=== PATIENT | female | born 1995 | race Caucasian/White ===

== ENCOUNTER 2018-08-17 13:25 | Emergency (ER) | payer SELFPAY ==
[2018-08-17 13:26] VITALS: BP 171/108; PULSE 94; RESP 16; TEMP 36.7; O2SAT 100; BMI 38.2
[2018-08-17] MEDS: 0.9% Normal Saline 1,000 ML 1000 ML IV (13:57)
[2018-08-17] MEDS: DiphenhydrAMINE 50 MG/ML Syringe 25 MG IV (13:57)
[2018-08-17] MEDS: Ketorolac 30 MG/ML Syringe IV (13:58)
[2018-08-17] MEDS: Metoclopramide 10 MG/2 ML Vial IV (13:59)
--- NOTE | 2018-08-17 14:03 | ED.VISSUMM ---
- ER Visit Summary Date of Service: 08/17/18 Chief Complaint: [Headache] History of Present Illness: The patient is a 23 F [presents with headache that started this morning. Patient states that she got up to use the restroom and noted that she had a headache that gradually worsened. Patient had nausea and vomited x4 with it. She complains of photophobia. Similar to headache she is had in the past. She denies any falls or head injuries. She denies recent illness. Patient did feel somewhat dizzy with it. Last menstrual period was 08/05/2018. Patient rates the headache a 10 out of 10 and describes it as a band around her head. Physical Examination: [HEENT-PERRLA, EOMI. Cranial nerves II through XII grossly intact. TMs clear. Mucous membranes moist. No adenopathy. Cardiovascular-regular rate and rhythm without murmur or ectopy Lungs-clear to auscultation, chest wall stable without crepitus or subcu emphysema Abdomen-normoactive bowel sounds, soft, nontender, no rebound or rigidity, no peritoneal signs. Neuro zzyx-kxuzaf-gehl and heel bo testing within normal limits, negative Romberg, negative pronator drift, fundi benign Extremities-intact ?4, normal range of motion, normal pulses, atraumatic] Test Results: [None indicated] Emergency Department Course and Treatment: [Patient had an IV line established and was given a liter normal same fluid bolus as well as Reglan, Benadryl, and Toradol. Patient's headache mostly resolved and she is feeling much improved. Patient states that she has no further dizziness.] Treatment Plan: [Patient will be given referral primary care physician process control tech for no doc. Patient advised to return if worsening headache, difficulty with balance, fever, persistent vomiting, or condition should worsen anyway.] Disposition: [Discharged home in stable condition] Impression: [Cephalgia-suspect migraine] This note was generated with [employer] dictation software. It may contain incorrect words, spelling, and punctuation that were not noted in review of the chart prior to signing ED Disposition - Plan for ED Patient: Referrals: Jerrod Livingston DO [COURTESY STAFF PHYSICIAN] -
--- NOTE | 2018-08-17 14:53 | ED.DEP ---
ED Disposition - Plan for ED Patient: Instructions: ED Cephalgia Unspecified, ED Headache Migraine Referrals: Jerrod Livingston DO [COURTESY STAFF PHYSICIAN] - Niall Guzman DO [STAFF PHYSICIAN] - 3-5 Days
[2018-08-17 14:59] VITALS: BP 145/79; PULSE 70; RESP 18; O2SAT 99
== END 2018-08-17 15:00 | disposition home or self-care (01) ==
PROVIDERS: Emergency Provider Emergency Medicine
DX: R51 Headache (principal); R11.2 Nausea with vomiting, unspecified
CPT/HCPCS: 96361; 96374; 96375; 99283; J7030; A4216

== ENCOUNTER → 2020-04-06 08:11 | Outpatient (CLI) | payer SELFPAY ==
[2020-03-30 08:52] VITALS: BMI 37.5
[2020-04-06 09:27] LABS: Prolactin 11.9 ng/mL; Thyroid Stim Hormone (TSH) 1.86 uIU/mL (0.358-3.74)
== END ==
LOC: PAVLAB 08:14
PROVIDERS: Referring Provider Obstetrics & Gynecology; Visit Provider Obstetrics & Gynecology
DX: N97.9 Female infertility, unspecified (principal)
CPT/HCPCS: 36415; 82627; 84146; 84403; 84443; 82626

== ENCOUNTER → 2020-04-22 14:20 | Outpatient (CLI) | payer BC, SELFPAY ==
[2020-03-30 08:52] VITALS: BMI 37.5
--- NOTE | 2020-04-22 14:28 | US_ITS ---
STUDY: ULTRASOUND OF THE FEMALE PELVIS - COMPLETE REASON FOR EXAM: Female, 24 years old. MENORRHAGIA LMP: 04/04/2020 TECHNIQUE: Transabdominal real-time exam grayscale image documentation. Transvaginal ultrasound was required for adequate visualization of the uterus and adnexal areas. TECHNICAL QUALITY: Adequate. COMPARISON: None. FINDINGS: The uterus is retroverted and is in a midline position. The uterus measures 6.9 x 4.2 x 6.7 cm. Normal uterine cervix. The endometrium measures 14.7 mm in thickness, and is striated. There is no demonstrated endometrial mass. There is no demonstrated myometrial mass. I.U.D. - The patient does not have an I.U.D. The right ovary is visualized. The right ovary measures 1.4 x 1.8 x 2.7 cm. There is no right ovarian cyst or ovarian mass. Question of prominent size of right fallopian tube. There is normal arterial and normal venous vascularity. The left ovary is visualized. The left ovary measures 1.7 x 2.1 x 3.3 cm. 8mm exophytic or paraovarian cyst. There is no visualized left adnexal mass or complex lesion. There is normal arterial and normal venous vascularity. Moderate free fluid. The pre void volume of the bladder was 362 ml. Polycystic ovary disease: No. US/Transvaginal Non- IMPRESSION: Normal uterus. Normal size of the right ovary with normal DOPPLER flow. Question mild prominence of the right fallopian tube. Normal size of the left ovary. 8 mm exophytic or paraovarian cyst. Moderate free fluid. Electronically Signed: Idalmis Jaquez MD at 16:14 EST , Service support ,
--- NOTE | 2020-04-22 14:28 | US_ITS ---
STUDY: ULTRASOUND OF THE FEMALE PELVIS - COMPLETE REASON FOR EXAM: Female, 24 years old. MENORRHAGIA LMP: 04/04/2020 TECHNIQUE: Transabdominal real-time exam grayscale image documentation. Transvaginal ultrasound was required for adequate visualization of the uterus and adnexal areas. TECHNICAL QUALITY: Adequate. COMPARISON: None. FINDINGS: The uterus is retroverted and is in a midline position. The uterus measures 6.9 x 4.2 x 6.7 cm. Normal uterine cervix. The endometrium measures 14.7 mm in thickness, and is striated. There is no demonstrated endometrial mass. There is no demonstrated myometrial mass. I.U.D. - The patient does not have an I.U.D. The right ovary is visualized. The right ovary measures 1.4 x 1.8 x 2.7 cm. There is no right ovarian cyst or ovarian mass. Question of prominent size of right fallopian tube. There is normal arterial and normal venous vascularity. The left ovary is visualized. The left ovary measures 1.7 x 2.1 x 3.3 cm. 8mm exophytic or paraovarian cyst. There is no visualized left adnexal mass or complex lesion. There is normal arterial and normal venous vascularity. Moderate free fluid. The pre void volume of the bladder was 362 ml. Polycystic ovary disease: No. US/Pelvic (Non ) IMPRESSION: Normal uterus. Normal size of the right ovary with normal DOPPLER flow. Question mild prominence of the right fallopian tube. Normal size of the left ovary. 8 mm exophytic or paraovarian cyst. Moderate free fluid. Electronically Signed: Idalmis Jaquez MD at 16:14 EST , Service support ,
== END ==
PROVIDERS: Referring Provider Obstetrics & Gynecology; Visit Provider Obstetrics & Gynecology
DX: N92.0 Excessive and frequent menstruation with regular cycle (principal)
CPT/HCPCS: 76830; 76856

== ENCOUNTER → 2020-06-18 | Outpatient (CLI) | payer BC, SELFPAY ==
[2020-03-30 08:52] VITALS: BMI 37.5
== END | disposition home or self-care (01) ==
LOC: LABSPEC 15:17
PROVIDERS: Referring Provider Otolaryngology Otolaryngology/Facial Plastic Surgery; Visit Provider Otolaryngology Otolaryngology/Facial Plastic Surgery
DX: J02.9 Acute pharyngitis, unspecified (principal)
CPT/HCPCS: 87070

== ENCOUNTER → 2020-11-25 09:19 | Outpatient (CLI) | payer BC, SELFPAY ==
[2020-11-11 09:36] VITALS: BMI 37.5
--- NOTE | 2020-11-25 09:23 | US_ITS ---
History: Viability Pelvic ultrasound: Findings: Endovaginal ultrasound imaging of the pelvis demonstrates a gestational sac like structure along the endometrium with average gestational sac diameter of 14 mm. No embryo or yolk sac is identified suggesting a nonviable . Ovaries are normal in size, echogenicity and perfusion. Right ovary measures 2.3 x 1.8 x 2.1 cm. Left ovary measures 3.9 x 1.7 x 1.4 cm. No adnexal mass or pelvic fluid collection. IMPRESSION: Intrauterine gestational sac like structure without embryo or yolk sac suggestive of nonviable first trimester . Recommend follow-up ultrasound in 7-10 days since gestational sac measurements did not meet criteria for determination of non-viability. at 1016 Reported and signed by: Madi Kemp MD Electronically Signed: Madi Kemp MD at 10:15 EDT Tel , Service support , US/Transvaginal w/Preg US
== END ==
PROVIDERS: Referring Provider Obstetrics & Gynecology; Visit Provider Obstetrics & Gynecology
DX: O20.0 Threatened abortion (principal); Z3A.00 Weeks of gestation of pregnancy not specified
CPT/HCPCS: 76817

== ENCOUNTER 2020-11-27 05:52 | Day surgery (SDC) | payer SELFPAY ==
[2020-11-25 10:02] VITALS: BMI 37.5
[2020-11-27] VITALS (11 sets, daily range): BP systolic 117–145; BP diastolic 65–97; PULSE 67–90; RESP 16–17; TEMP 36.1–36.6; O2SAT 92–100; BMI 36.5
[2020-11-27] MEDS: Lactated Ringers 1,000 ML 100 ML IV ×2 (06:57→11:09)
[2020-11-27] MEDS: Doxycycline 100 MG CAPSULE 200 MG PO (06:58)
[2020-11-27 07:02] LABS: Hematocrit 40.9 % (37-47); Hemoglobin 13.2 g/dL (12.0-15.0); Mean Corp Hgb Conc 32.3 g/dL (32-36); Mean Corpuscular Hgb 26.4 pg (27.0-32.0); Mean Corpuscular Volume 81.8 fL (81-99); Mean Platelet Vol. 10.7 fl (6.2-12.0); Platelet Count 253 K/mm3 (150-450); RBC Distribution Width CV 13.3 % (11.6-14.6); RBC Distribution Width SD 39.6 fl (35.1-43.9); White Blood Count 8.8 K/mm3 (4.4-11.0)
--- NOTE | 2020-11-27 07:26 | HP.PCM.OB_ITS ---
HPI - General HPI Narrative TANVI ARGUETA, is a 25 F who presents for suction D&C for missed PFSH PFSH Medical History (Updated 11/26/20 @ 13:19 by Larisa Vizcaino) Migraine headache Non-smoker Wears contact lenses Wears glasses Home Medications prenat.vits,allen,aou-qgqg-onsdb 1 tab PO DAILY 11/02/20 [History Last Taken Unknown] promethazine 12.5 mg tablet 12.5 mg PO Q6H PRN #60 tab 11/11/20 [Rx Last Taken Unknown] Allergy/AdvReac Type Severity Reaction Status Date / Time Penicillins [PCN] Allergy Swelling Verified 11/27/20 06:26 Sulfa (Sulfonamide Allergy Hives Verified 11/27/20 06:26 Antibiotics) Family History Mother Hypertension Grandmother Hypertension Aunt Ovarian cancer Surgical History s/p left arm surgery Social History adopted: No household members: spouse and other details: custody of niece born 08/30/20 current occupational status: employed 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[employer], 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 pets and animals: Yes pets and animals: dog(s) sexually active: Yes Smoking Status: Never smoker alcohol intake: current details: occasionally; none while substance use type: does not use caffeine: Yes what type of physical activity do you participate in: running frequency: 3-4 times per week seatbelt use: always do you feel safe at home: Yes additional social history: - [place] History 1 Elective abortions Hx Para Spontaneous abortions 1 Hx # Term Pregnancies Ectopic pregnancies Hx # Pregnancies Multiple births # of living children ROS Eyes Eyes: Reports systems reviewed and no addt'l complaints, except as documented ENT HEENT: Reports systems reviewed and no addt'l complaints, except as documented Cardiovascular Cardiovascular: Reports systems reviewed and no addt'l complaints, except as documented Respiratory/Chest Respiratory/Chest: Reports systems reviewed and no addt'l complaints, except as documented Gastrointestinal Gastrointestinal: Reports systems reviewed and no addt'l complaints, except as documented Genitourinary Genitourinary: Reports systems reviewed and no addt'l complaints, except as documented Musculoskeletal Musculoskeletal: Reports systems reviewed and no addt'l complaints, except as documented Integumentary Integumentary: Reports systems reviewed and no addt'l complaints, except as documented Neurologic Neurologic: Reports systems reviewed and no addt'l complaints, except as documented Psychiatric Psychiatric: Reports systems reviewed and no addt'l complaints, except as documented Endocrine Endocrinology: Reports systems reviewed and no addt'l complaints, except as documented Hematologic/Lymphatic Hematologic/Lymphatic: Reports systems reviewed and no addt'l complaints, except as documented Allergic/Immunologic Allergic/Immunologic: Reports systems reviewed and no addt'l complaints, except as documented Vital Signs Vital Signs Vital Signs: 11/27/20 06:29 Temperature 97.6 F L Temperature Source Temporal Pulse Rate 83 Respiratory Rate 16 Respiratory Pattern Normal Blood Pressure 126/88 H Blood Pressure Mean 100 Blood Pressure Source Monitor Blood Pressure Position Semi-Fowlers Blood Pressure Location Left Arm Pulse Ox 100 Oxygen Delivery Method Room Air Weight Weight: 226 lb 3.108 oz Body Mass Index (BMI) 36.5 Physical Exam Const alert, oriented x3, no apparent distress, average body habitus, healthy appearing and well nourished HEENT normocephalic and moist oral mucous membranes Head and Scalp: atraumatic Eyes PERRL and EOMs intact bilaterally Neck full ROM Resp normal respiratory effort, no retractions and no use of accessory muscles Cardio regular rate and regular rhythm GI soft to palpation, non-tender and non-distended Extremity normal to inspection and full ROM Skin no rashes or lesions noted Neuro no focal motor deficits and no sensory deficits noted Psych mental status grossly normal, affect normal, speech normal and activity/motor behavior normal Labs Labs Labs: Blood Type Pending Antibody Screen Pending Hct 40.9 % (37-47) Hgb 13.2 g/dL (12.0-15.0) Pap Smear Negative Obstetrics US Miscellaneous Test Assessment & Plan (1) Missed : COMMENT: Scheduled for D&C 11/27 PLAN: Patient presents for suction D&C for missed Ultrasound today again demonstrates gestational sac without yolk sac or pole Discussed with patient that given 2 ultrasounds 14 days apart without evidence of a live intrauterine , she meets criteria for a miscarriage Reassurance provided that there is nothing that could have been done to prevent or predict that this was going to happen Counseled that the majority of miscarriages are related to genetic abnormalities Discussed that this is not ready affect her ability to conceive in the future Discussed that if she resumes normal menses she can begin trying to conceive T is he nature of the procedure was described to the patient. The risks, benefits, indications, and alternatives to the procedure were discussed with the patient including bleeding, infection, and damage to surrounding structures. Discussed that risks are very low with D&C. Discussed the possibility of perforation and that this could require laparotomy or laparoscopy. Discussed the possibility of damage to surrounding structures including uterus, tubes, ovaries, bowel, or bladder. Understands the risk of hospitalization or reoperation. Voices understanding and agrees to proceed.
--- NOTE | 2020-11-27 07:30 | POC_PTH ---
PATIENT: TANVI ARGUETA LOC: [facility] – [place] U#:[id number] AGE/SX: 25/F ROOM: RE11/27/[address]: Dr. Maria Luisa Serrano MD : 1995 BED: DIS: 11/27/2020 SPEC #: [id number] RECD: 11/27/20 10:35 STATUS: KRISTA BAEZ #: [id number] FRANCISCA: 11/27/20 07:[address]: Maria Luisa Serrano DEPT: SURGICAL PATHOLOGY RECD BY: Smooth Garrison ENTERED: 11/27/20 10:50 SP TYPE: PROD CONC OTHR DR: No Primary Care Phys Tissues: Product of conception, NOS Procedures: Surgery Specimen Level IV HEADER OPERATION: Suction dilation and curettage PRE-OP DIAGNOSIS: Missed TISSUE SUBMITTED: Products of conception MICROSCOPIC DIAGNOSIS Products of conception: Immature chorionic villi, decidua and gestational endometrium (products of conception). SJ:sherrill 11/30/2020 MICROSCOPIC DESCRIPTION Slides are reviewed. GROSS DESCRIPTION Received in fixative is one container labeled with the patient's name and designated products of conception. The specimen consists of multiple irregular fragments of red-siddiqui soft tissue that in aggregate measure 9 x 9 x 1 cm. parts are not grossly recognized. Dough Mixer Operator portions are submitted in one cassette. / AM:sherrill 11/27/20 TC:5 CPT: 66196
[2020-11-27] MEDS: Lidocaine 1% (20 ml mdv) 20 ML Vial (07:40)
--- NOTE | 2020-11-27 08:46 | PCM.DC ---
Discharge Instructions Diet Discharge Diet: No restrictions Activity Discharge Activity: Return to Normal Activity, May Not Drive (while taking narcotic pain medications.) and May Shower May resume sexual activity in: 1-2 weeks Dressing / Incision Call your doctor if your incision/area has: Continuous Slow Oozing, Sudden Increased Bleeding, Increased Pain/ Swelling, Increased Redness and Foul Smelling Discharge Follow Up Care Test Results: Test results from this visit will be discussed in further detail at your follow-up appointment, if applicable. Discharge Plan Admission Attending Provider: Maria Luisa Serrano Primary Care Provider: Care Physician,Natalie Primary Discharge Orders/Prescriptions Prescriptions: New ibuprofen 800 mg tablet 800 mg PO Q8H PRN (Reason: pain) Qty: 30 RF: 1 Continued promethazine 12.5 mg tablet 12.5 mg PO Q6H PRN (Reason: nausea and vomiting) Qty: 60 RF: 2 prenat.vits,allen,umv-egbv-lciuw Tablet 1 tab PO DAILY RF: 0 Referrals / Follow Up: Care Physician,No Primary [Primary Care Provider] - Disposition Disposition (needs filled in before D/C Order can be placed): Home, Self Care
--- NOTE | 2020-11-27 08:48 | PCM.OPRPT ---
Problems Associated Problem List Diagnoses (1) Missed : Report of Operation Date of Procedure: 11/27/20 Pre-Operative Diagnosis: Missed Post-Operative Diagnosis: same Surgery/Procedure Performed:: suction D&C Description of Surgical Findings:: Normal-appearing cervix manager clinical research: None Type of Anesthesia: MAC Special Medications: Doxycycline preop Specimen's removed: Products of conception Drains: Straight cath Estimated Blood Loss (mL): 25 cc Fluids Replaced: 250 cc Description of Procedure: The patient was taken to the operating room where anesthesia was obtained without difficulty. She was prepped and draped in the dorsal lithotomy position with yellofin stirrups. A weighted speculum was placed in the posterior aspect of the vagina and the anterior lip of the cervix was grasped with a ring forcep. The cervix was sequentially dilated to accommodate a #7 curved curette. The suction was activated and the products of conception were removed in an outward rotating movement. A gentle sharp curettage was then performed followed by an additional pass with the suction. The procedure was deemed complete. All instruments were removed from the vagina. The patient was awakened from anesthesia and taken to the recovery room in stable condition. Complications None apparent Admit VTE Documentation VTE Present on Admission: No VTE Mechan Device Prophylaxis: SCD's VTE Pharm Prophylaxis ordered?: No Procedures Urinary/Genital [id number]: [id number] Surg Trtmt missed Ab, 1TM
== END 2020-11-27 12:32 | disposition home or self-care (01) ==
LOC: SDC 05:53 → AC 05:54
PROVIDERS: Referring Provider Obstetrics & Gynecology; Visit Provider Obstetrics & Gynecology
PROC: (CPT 59812; principal; 2020-11-27 07:15)
DX: O02.89 Other abnormal products of conception (principal)
CPT/HCPCS: 59812; 85027; 86850; 86900; 86901; 88305; J7120; J2405

== ENCOUNTER → 2023-05-24 | Outpatient (CLI) | payer OTHER, SELFPAY ==
[2023-05-24 15:51] LABS: hCG Titer Quant., Serum 209 mIU/mL (1-3)
== END | disposition home or self-care (01) ==
PROVIDERS: Referring Provider Advanced Practice Midwife; Visit Provider Advanced Practice Midwife
DX: Z34.90 Encounter for supervision of normal pregnancy, unspecified, unspecified trimester (principal); Z87.59 Personal history of other complications of pregnancy, childbirth and the puerperium
CPT/HCPCS: 36415; 84702

== ENCOUNTER → 2023-05-26 | Outpatient (CLI) | payer OTHER, SELFPAY ==
--- OUTSIDE RECORDS SUMMARY | 2023-05-26 10:56 | XMS RPT_ITS | CCD ---
Author Name Unknown Address [facility] [address] [place] [address] Organization [facility] Care Team Providers Care English Professor Name Role Phone Required, No Pcp Unavailable Unavailable Andrés Randle Unavailable Maryam Smith Primary Care Provider Maryam Smith Primary Care Provider [phone] Alyssia Pichardo MD Primary Care Provider ALYSSIA PICHARDO Primary Care Unavailab ALYSSIA Cortez Attending UnavailALYSSIA Solano Referring Unavailab ALYSSIA Cortez Primary Care Unavailab ALYSSIA Cortez Referring Unavailab ALYSSIA Cortez Primary Care Unavailab ALYSSIA Cortez Attending UnavailALYSSIA Solano Primary Care Unavailab le Allergies Allergy Classification Reported Allergen(s) Allergy Type Date of Onset Reaction(s) Facility Penicillins (antibiotic) (1 source) Penicillin Drug Allergy Unknown [facility] Sulfonamides (antibiotic) (1 source) Sulfonamides (Antibiotic) Drug Allergy Unknown [facility] (9 sources) Penicillins; Translations: [PENICILLINS] Drug Allergy 08-20-2014 [facility] Work Phone: (9 sources) Sulfonamides (Antibiotic); Translations: [SULFA (SULFONAMIDE ANTIBIOTICS)] Drug Allergy 09-03-2014 [facility] Work Phone: Medications Current Medications Medication Drug Class(es) Dates Sig (Normalized) Sig (Original) naproxen 500 mg oral tablet (2 sources) Nonsteroidal Anti-inflammatory Drug Start: 10-11-2022 End: 11-10-2022 take 1 tablet by mouth every twelve hours as needed naproxen (NAPROSYN) 500 mg tablet Take 1 tablet by mouth twice daily as needed. Take with food. 60 tablet 0 10/11/2022 11/10/2022 Active Completed/Discontinued Medications Medication Drug Class(es) Dates Sig (Normalized) Sig (Original) amitriptyline hydrochloride 10 mg oral tablet (8 sources) Tricyclic Antidepressant Start: 10-11-2022 End: 12-06-2023 take 1 tablet by mouth once daily at bedtime amitriptyline (ELAVIL) 10 mg tablet Indications: Migraine with aura and without status migrainosus, not intractable Take 1 tablet by mouth daily at bedtime. 90 tablet 2 03/11/2023 05/23/2023 Discontinued Problems Active Problems Problem Classification Problem Date Documented Da te Episodic/Chronic Abdominal pain (11 sources) Right flank pain; Translations: [Right upper quadrant pain] 2020 Episodic Past or Other Problems Problem Classification Problem Date Documented Date Episodic/Chronic Immunizations and screening for infectious disease (3 sources) Encounter for screening for other viral diseases; Translations: [Encounter for screening for human immunodeficiency virus [HIV]] Onset: 10-11-2022 Episodic Other non-traumatic joint disorders (1 source) Pain in left ankle and joints of left foot; Translations: [Chronic pain of left ankle] Onset: 01-05-2023 Episodic Screening and history of mental health and substance abuse codes (1 source) Personal history of other mental and behavioral disorders; Translations: [History of bipolar disorder] Onset: 10-11-2022 Episodic Results Test Name Value Interpretation Reference Range Facil ity Vital Signs Date Time Vital Sign Value Performing Clinician Don parsons 01-05-2023 15:36-0400 Body weight 102.97 kg Alyssia Pichardo MD Work Phone: [facility] 01-05-2023 15:36-0400 Diastolic blood pressure 82 mm[Hg] Alyssia Pichardo MD Work Phone: [facility] 01-05-2023 15:36-0400 Heart rate 90 /min Alyssia Pichardo MD Work Phone: [facility] 01-05-2023 15:36-0400 Respiratory rate 16 /min Alyssia Pichardo MD Work Phone: [facility] 01-05-2023 15:36-0400 SaO2% (BldA) [Mass fraction] 99 % Alyssia Pichardo MD Work Phone: [facility] 01-05-2023 15:36-0400 Systolic blood pressure 126 mm[Hg] Alyssia Pichardo MD Work Phone: [facility] 04-21-2022 10:31-0500 Body temperature 97.5 [degF] Zonia Eid ORTHOTIST.RECORD MAKER Work Phone: [facility] 04-21-2022 10:31-0500 Body weight 105.33 kg Zonia Eid ORTHOTIST.RECORD MAKER Work Phone: [facility] 04-21-2022 10:31-0500 Diastolic blood pressure 82 mm[Hg] Zonia Eid ORTHOTIST.RECORD MAKER Work Phone: [facility] 04-21-2022 10:31-0500 Heart rate 72 /min Zonia Eid ORTHOTIST.RECORD MAKER Work Phone: [facility] 04-21-2022 10:31-0500 Respiratory rate 18 /min Zonia Eid ORTHOTIST.RECORD MAKER Work Phone: [facility] 04-21-2022 10:31-0500 SaO2% (BldA) [Mass fraction] 99 % Zonia Eid ORTHOTIST.RECORD MAKER Work Phone: [facility] 04-21-2022 10:31-0500 Systolic blood pressure 128 mm[Hg] Zonia Eid ORTHOTIST.RECORD MAKER Work Phone: [facility] 11-23-2021 10:00-0400 Body temperature 97.59 [degF] Na Sarabia ORTHOTIST.RECORD MAKER Work Phone: [facility] 11-23-2021 10:00-0400 Body weight 107.5 kg Na Sarabia ORTHOTIST.RECORD MAKER Work Phone: [facility] 11-23-2021 10:00-0400 Diastolic blood pressure 78 mm[Hg] Na Praisler-Wood ORTHOTIST.RECORD MAKER Work Phone: [facility] 11-23-2021 10:00-0400 Heart rate 95 /min Na Praisler-Wood ORTHOTIST.RECORD MAKER Work Phone: [facility] 11-23-2021 10:00-0400 Respiratory rate 16 /min Na Praisler-Wood ORTHOTIST.RECORD MAKER Work Phone: [facility] 11-23-2021 10:00-0400 SaO2% (BldA) [Mass fraction] 99 % Na Praisler-Wood ORTHOTIST.RECORD MAKER Work Phone: [facility] 11-23-2021 10:00-0400 Systolic blood pressure 126 mm[Hg] Na Praisler-Wood ORTHOTIST.RECORD MAKER Work Phone: [facility] 08-12-2020 04:32-0400 Diastolic blood pressure 85 mm[Hg] No Pcp Required [facility] 08-12-2020 04:32-0400 Heart rate 74 /min No Pcp Required [facility] 08-12-2020 04:32-0400 Respiratory rate 18 /min No Pcp Required [facility] 08-12-2020 04:32-0400 SaO2% (BldA) [Mass fraction] 96 % No Pcp Required [facility] 08-12-2020 04:32-0400 Systolic blood pressure 117 mm[Hg] No Pcp Required [facility] Encounters Encounter Date Encounter Type Care Provider Facility Start: 05-23-2023 Telephone encounter Gurwinder Pichardo MD Work Phone: [facility] Procedures Date Procedure Procedure Detail Performing Clinician Start: 04-21-2022 Culture bacterial quanttative colony count urine Zonia Eid APRN.RECORD MAKER Work Phone: Start: 04-21-2022 Urnls dip stick/tabl et rgnt auto w/o microscopy Zonia Eid APRN.CNP Work Phone: Start: 11-23-2021 Urnls dip stick/tabl et rgnt auto w/o microscopy [facility] Provider Start: 09-30-2020 Adult depression scr eening assessment Na Sarabia APRN.CNP Work Phone: Plan of Treatment Date Care Activity Detail Author Start: 10-11-2032 Urine microalbumin profile [facility] Start: 10-15-2023 Influenza vaccination Influenza Vacc ine (#1) [facility] Immunizations Immunization Date Immunization Notes Care Provider Fa cility 10-11-2022 tetanus toxoid, redu cali diphtheria toxoid, and acellular pertussis vaccine, adsorbed Alyssia Pichardo MD Work Phone: [facility] 06-08-2012 hepatitis B vaccine, pediatric or pediatric/adolescent dosage Alyssia Pichardo MD Work Phone: [facility] Work Phone: 06-08-2012 human papilloma viru s vaccine, quadrivalent Alyssia Pichardo MD Work Phone: [facility] Work Phone: 06-08-2012 hepatitis B vaccine, unspecified formulation Alyssia Pichardo MD Work Phone: [facility] 02-15-2012 influenza, seasonal, injectable, preservative free Alyssia Pichardo MD Work Phone: [facility] Work Phone: 02-15-2012 influenza virus vacc ine, unspecified formulation Alyssia Pichardo MD Work Phone: [facility] 01-03-2012 human papilloma viru s vaccine, quadrivalent Alyssia Pichardo MD Work Phone: [facility] Work Phone: 11-29-2011 hepatitis A vaccine, pediatric/adolescent dosage, 2 dose schedule Alyssia Pichardo MD Work Phone: [facility] Work Phone: 11-29-2011 human papilloma viru s vaccine, quadrivalent Alyssia Pichardo MD Work Phone: [facility] Work Phone: 11-29-2011 meningococcal oligosaccharide (groups A, C, Y and W-135) diphtheria toxoid conjugate vaccine (MCV4O) Alyssia Pichardo MD Work Phone: [facility] Work Phone: 11-26-2007 tetanus toxoid, redu cali diphtheria toxoid, and acellular pertussis vaccine, adsorbed Alyssia Pichardo MD Work Phone: [facility] Work Phone: 01-02-2001 measles, mumps and rubella virus vaccine Alyssia Pichardo MD Work Phone: [facility] Work Phone: 01-02-2001 poliovirus vaccine, inactivated Alyssia Pichardo MD Work Phone: [facility] Work Phone: Payers Date Payer Category Payer Unknown 2021 Unknown [id number] Social History Date Type Detail Facility [facility] Tobacco smoking consumption unknown [facility] Start: 05-14-2015 Tobacco smoking status NHIS Never smoked tobacco [facility] Start: 05-14-2015 Tobacco use and exposure Smokeless tobacco non-user [facility] Start: 11-23-2021 End: 10-11-2022 Alcohol intake Current non-drinker of alcohol (finding) [facility] Start: 1995 Sex Assigned At Female [facility] Start: 11-13-2021 End: 11-23-2021 Exposure to SARS-CoV-2 (event) Not sure [facility] Start: 10-11-2022 History SDOH Alcohol Frequency 1 [facility] Start: 10-11-2022 History SDOH Alcohol Std Drinks 0 [facility] Start: 10-11-2022 History SDOH Social Connections Phone 5 [facility] Start: 10-11-2022 History SDOH Social Connections Hindu 3 [facility] Start: 10-11-2022 History SDOH Physical Activity DPW 7 [facility] Start: 10-11-2022 History SDOH Physical Activity MPS 6 [facility] Start: 10-11-2022 History SDOH Transport Med 2 [facility] Start: 10-11-2022 History of Social function [facility] Start: 10-11-2022 Social connection and isolation panel [facility] Do you belong to any clubs or organizations such as muslim groups, unions, fraternal or athletic groups, or school groups? Yes [facility] Are you now , , , , never or living with a partner? [facility] How often to you hav e a drink containing alcohol? Never [facility] How many standard dr inks containing alcohol do you have on a typical day? Patient does not drink [facility] Do you feel stress - tense, restless, nervous, or anxious, or unable to sleep at night because your mind is troubled all the time - these days [OSQ] Not at all [facility] (I/We) worried wheyuli er (my/our) food would run out before (I/we) got money to buy more. Never true [facility] In the past 12 month s, was there a time when you were not able to pay the mortgage or rent on time? No [facility] Start: 09-30-2020 Gender identity Identifies as female gender (finding) [facility] Start: 12-18-2022 Sexual orientation Heterosexual (finding) [facility] Clinical Notes 11-23-2021 to 05-23-2023 Telephone Encounter - Suzi De Paz LPN - 05/23/2023 4:29 PM ESTTelephone Encounter - Alyssia Pichardo MD - 05/23/2023 4:19 PM Alyssia Fernandez MD - 01/05/2023 3:51 PM EDT Note Date & Type Note Facility 05-23-2023 Miscellaneous Notes Reviewed message with patiernt and she voiced understanding. OV scheduled for 05/31/23 with PCP to discuss alt. migraine tx. BILL DISTRIBUTOR referral order placed. I would have her discontinue the amitriptyline and will discuss alternatives for migraine prevention in at OV. Please assist with scheduling appointment. Patient calls to report that she just missed her monthly cycle and completed 7 tests and they were all positive. Patient asking provider to advise on amitriptyline and requesting an appointment to verify . Pended referral to BILL DISTRIBUTOR. Coreen Greer RN documented in this encounter [facility] 03-10-2023 Miscellaneous Notes [facility] 01/05/23 NOV no upcoming appt noted Patient has been identified by name and date of : Yes Requested Prescriptions Pending Prescriptions Disp Refills amitriptyline (ELAVIL) 10 mg tablet 90 tablet 2 Sig: Take 1 tablet by mouth daily at bedtime. RX INSTRUCTIONS: change of pharmacy please send to [facility] in [place] Patient aware RX will be sent to pharmacy. No need to notify patient. Geraldine Castanedasec documented in this encounter [facility] 01-05-2023 Note HNO ID: [id number] Author: Alyssia Pichardo MD Service: ? Author Type: Physician Type: Progress Notes Filed: 01/06/2023 10:15 AM Note Text: Chief Complaint Patient presents with: Follow Up HPI Lizzie Argueta is a 27 year old female who presents here today for migraine follow up. Patient started on elavil at last OV for migraine headaches and vestibular symptoms. States that this has improved her headaches from once a week to once in the last 3 months. Even the 1 migraine she had was less severe. Does get fatigue during the day, but this is not severe enough to stop rx. Weight down 6 lbs. Cut out sugary drinks. Going to gym regularly. Left ankle pain improved after she got new work shoes. Past medical history, appointments, medications, allergies reviewed. Previous Medical History PAST MEDICAL HISTORY Diagnosis Date Abdominal pain Class 2 obesity due to excess calories without serious comorbidity with body mass index (BMI) of 38.0 to 38.9 in adult Diarrhea History of bipolar disorder Migraine Nausea PCOS (polycystic ovarian syndrome) Vomiting Previous Surgical History PAST SURGICAL HISTORY Procedure Laterality Date COLONOSCOPY FLX DX W/COLLJ SPEC WHEN PFRMD 09/10/2014 Colonoscopy DANDC, DIAG AND/OR THERAPEUTIC 11/2020 miscarriage ESOPHAGOGASTRODUODENOSCOPY TRANSORAL DIAGNOSTIC 09/10/2014 EGD PAST SURGICAL HISTORY OF 06/16/2007 left arm surgery (broken arm) Family History FAMILY HISTORY Problem Relation Age of Onset Hypertension Mother obese/hypothyroid Bipolar disorder Mother Schizophrenia Mother Bipolar disorder Sister other (SC) Maternal Grandfather Age 40 SC Diabetes Paternal Grandmother Ischemic Heart Disease Paternal Grandmother Kidney failure Paternal Grandmother Suicide / Suicidal Behaviors Paternal Grandfather Patient Allergies ALLERGIES Allergen Reactions Penicillins Hives face swelling Sulfa (Sulfonamide * Hives Current Medications Current Outpatient Medications on File Prior to Visit Medication Sig amitriptyline (ELAVIL) 10 mg tablet Take 1 tablet by mouth daily at bedtime. No current facility-administered medications on file prior to visit. Social History Social History Tobacco Use Smoking status: Never Smokeless tobacco: Never Vaping Use Vaping Use: Never used Substance Use Topics Alcohol use: No Drug use: No Review of Symptoms REVIEW OF SYSTEMS GENERAL: No weight loss, malaise or fevers RESPIRATORY: Negative for cough, hemoptysis, wheezing, COPD, dyspnea or shortness of breath CARDIOVASCULAR: Negative for chest pain, leg swelling, hypertension, CHF or palpitations GI: No nausea, vomiting, or diarrhea EXAM: BP 126/82 Pulse 90 Resp 16 Wt 103 kg (227 lb) LMP 10/11/2022 SpO2 99% BMI 36.92 kg/m? General Appearance: Well appearing, alert, in no acute distress, well-hydrated, well nourished.. Skin: Skin color, texture, turgor normal, no suspicious rashes or lesions. Lungs: Lungs clear to auscultation. No wheezing, rhonchi, rales.. Heart: RRR without murmur, gallop, or rubs. No ectopy. Abdomen: Normal abdominal exam, Abdomen soft, non-tender. Bowel sounds normal. No masses, organomegaly. Extremities: No deformities, edema, skin discoloration, clubbing or cyanosis. Good capillary refill. . Health Maintenance List Influenza Vaccine(1) due on 12/16/2022 Hepatitis B Vaccine(2 of 3 - 3-dose series) due on 10/12/2023 Pap Testing due on 10/12/2023 Covid-19 Vaccine(3 - Pfizer series) due on 10/12/2023 DTaP,Tdap,Td Vaccine(3 - Td or Tdap) due on 10/11/2032 HPV Vaccine Completed Depression Assessment Completed Hepatitis C Screening Completed HIV Screening Completed ASSESSMENT/PLAN: 1. Migraine with aura and without status migrainosus, not intractable - ICD9: 346.00, ICD10: G43.109 (primary diagnosis) Significantly improved on low dose amitriptyline. Continue current regimen. Call if headaches change or worsen. - AMITRIPTYLINE 10 MG TABLET 2. Chronic pain of left ankle - ICD9: 719.47, 338.29, ICD10: M25.572, G89.29 Resolved. 3. Class 2 obesity due to excess calories without serious comorbidity with body mass index (BMI) of 36.0 to 36.9 in adult - ICD9: 278.00, V85.36, ICD10: E66.09, Z68.36 Weight decreasing - Behavioral intervention Alyssia Pichardo MD [facility] 01-05-2023 History of Presen t illness Narrative Chief Complaint Patient presents with: Follow Up HPI Lizzie Argueta is a 27 year old female who presents here today for migraine follow up. Patient started on elavil at last OV for migraine headaches and vestibular symptoms. States that this has improved her headaches from once a week to once in the last 3 months. Even the 1 migraine she had was less severe. Does get fatigue during the day, but this is not severe enough to stop rx. Weight down 6 lbs. Cut out sugary drinks. Going to gym regularly. Left ankle pain improved after she got new work shoes. Past medical history, appointments, medications, allergies reviewed. Previous Medical History PAST MEDICAL HISTORY Diagnosis Date Abdominal pain Class 2 obesity due to excess calories without serious comorbidity with body mass index (BMI) of 38.0 to 38.9 in adult Diarrhea History of bipolar disorder Migraine Nausea PCOS (polycystic ovarian syndrome) Vomiting Previous Surgical History PAST SURGICAL HISTORY Procedure Laterality Date COLONOSCOPY FLX DX W/COLLJ SPEC WHEN PFRMD 09/10/2014 Colonoscopy D&C, DIAG AND/OR THERAPEUTIC 11/2020 miscarriage ESOPHAGOGASTRODUODENOSCOPY TRANSORAL DIAGNOSTIC 09/10/2014 EGD PAST SURGICAL HISTORY OF 06/16/2007 left arm surgery (broken arm) Family History FAMILY HISTORY Problem Relation Age of Onset Hypertension Mother obese/hypothyroid Bipolar disorder Mother Schizophrenia Mother Bipolar disorder Sister other (SC) Maternal Grandfather Age 40 SC Diabetes Paternal Grandmother Ischemic Heart Disease Paternal Grandmother Kidney failure Paternal Grandmother Suicide / Suicidal Behaviors Paternal Grandfather Patient Allergies ALLERGIES Allergen Reactions Penicillins Hives face swelling Sulfa (Sulfonamide * Hives Current Medications Current Outpatient Medications on File Prior to Visit Medication Sig amitriptyline (ELAVIL) 10 mg tablet Take 1 tablet by mouth daily at bedtime. No current facility-administered medications on file prior to visit. Social History Social History Tobacco Use Smoking status: Never Smokeless tobacco: Never Vaping Use Vaping Use: Never used Substance Use Topics Alcohol use: No Drug use: No Review of Symptoms REVIEW OF SYSTEMS GENERAL: No weight loss, malaise or fevers RESPIRATORY: Negative for cough, hemoptysis, wheezing, COPD, dyspnea or shortness of breath CARDIOVASCULAR: Negative for chest pain, leg swelling, hypertension, CHF or palpitations GI: No nausea, vomiting, or diarrhea EXAM: BP 126/82 Pulse 90 Resp 16 Wt 103 kg (227 lb) LMP 10/11/2022 SpO2 99% BMI 36.92 kg/m General Appearance: Well appearing, alert, in no acute distress, well-hydrated, well nourished.. Skin: Skin color, texture, turgor normal, no suspicious rashes or lesions. Lungs: Lungs clear to auscultation. No wheezing, rhonchi, rales.. Heart: RRR without murmur, gallop, or rubs. No ectopy. Abdomen: Normal abdominal exam, Abdomen soft, non-tender. Bowel sounds normal. No masses, organomegaly. Extremities: No deformities, edema, skin discoloration, clubbing or cyanosis. Good capillary refill. . Health Maintenance List Influenza Vaccine(1) due on 12/16/2022 Hepatitis B Vaccine(2 of 3 - 3-dose series) due on 10/12/2023 Pap Testing due on 10/12/2023 Covid-19 Vaccine(3 - Pfizer series) due on 10/12/2023 DTaP,Tdap,Td Vaccine(3 - Td or Tdap) due on 10/11/2032 HPV Vaccine Completed Depression Assessment Completed Hepatitis C Screening Completed HIV Screening Completed ASSESSMENT/PLAN: 1. Migraine with aura and without status migrainosus, not intractable - ICD9: 346.00, ICD10: G43.109 (primary diagnosis) Significantly improved on low dose amitriptyline. Continue current regimen. Call if headaches change or worsen. - AMITRIPTYLINE 10 MG TABLET 2. Chronic pain of left ankle - ICD9: 719.47, 338.29, ICD10: M25.572, G89.29 Resolved. 3. Class 2 obesity due to excess calories without serious comorbidity with body mass index (BMI) of 36.0 to 36.9 in adult - ICD9: 278.00, V85.36, ICD10: E66.09, Z68.36 Weight decreasing - Behavioral intervention Alyssia Pichardo MD documented in this encounter [facility] 10-25-2022 Miscellaneous Notes MC message sent. ----- Message from Alyssia Pichardo MD sent at 10/25/2022 8:28 AM EDT ----- Normal ankle xray. Negative for fracture or dislocation. documented in this encounter [facility] 10-20-2022 Note HNO ID: [id number] Author: RT Charity(R) Service: ? Author Type: Clinical Administrator Type: Progress Notes Filed: 10/20/2022 4:45 PM Note Text: Radiology Service Progress Note PATIENT NAME: Lizzie Argueta DATE OF SERVICE: October 20, 2022 TIME: 4:36 PM PATIENT IDENTITY VERIFICATION COMPLETED USING TWO (2) IDENTIFIERS: Name and Date of confirmed by patient verbally. FALL SCREENING: Has the patient had 2 falls in the last year or 1 fall with injury or currently using an Ambulatory Assistive Device (Walker, Cane, Wheelchair, Crutches, etc.)? No PATIENT GENDER DATA: Female. status: : No status: NO. PATIENT RELEVANT IMPLANT DATA REVIEWED: Yes RADIOLOGY DEPARTMENT: General X-ray: Exam(s) Completed: Lower Extremity X-Ray(s): Ankle, Left PERIPHERAL IV DATA: Not applicable SIGNED BY: RT Charity(R) October 20, 2022 4:36 PM [facility] 10-13-2022 Miscellaneous Notes Patient returned call and given provider's message below and patient verbalized understanding. Jm Meier RN Message left for patient to return call to review result and recommendations. ----- Message from Alyssia Pichardo MD sent at 10/13/2022 2:47 PM EDT ----- Labs are unremarkable. Negative for HIV, Hepatitis C and diabetes. Continue to work on low cholesterol diet, regular exercise, and weight loss. documented in this encounter [facility] 10-11-2022 Note HNO ID: [id number] Author: Alyssia Pichardo MD Service: ? Author Type: Physician Type: Progress Notes Filed: 10/12/2022 8:11 AM Note Text: Chief Complaint Patient presents with: Establish Care: General check up HPI Lizzie Argueta is a 27 year old female who presents here today for Above Complaints. Last OV with our office 08/28/2020. Accompanied today by her niece. C/o left ankle pain for the last year after twisting it at work. Described as stiffness located over lateral malleolus and up her calf. Was able to walk immediately after this injury. Did not have any swelling or bruising. Exacerbated with standing after walking. Improved with walking and ice. Not taking any OTC medications. History of bipolar disorder and is following up with counseling here in [place]. Has appointments every other week. Patient is not following up with psychiatry. Has been off of her Seroquel for about 2 years. 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 No anxiety symptoms recently. Denies SI/HI today. PHQ-2 / Depression screen He in the past two weeks denies having felt down, depressed, hopeless or with little interest or pleasure in doing things. History of vestibular migraines which she has discovered is triggered by higher temperatures. Getting headaches once per week during the summer. Headaches associated with nausea and vomiting, photophobia, phonophobia. Denies dizziness. Treating with excedrin migraine and a can of pop which improves symptoms. Interested in prophylaxis. Patient follows up with [facility] for routine pap smears. Last pap was in 2020 and was reportedly normal. Past medical history, appointments, medications, allergies reviewed. Previous Medical History PAST MEDICAL HISTORY Diagnosis Date Abdominal pain Class 2 obesity due to excess calories without serious comorbidity with body mass index (BMI) of 38.0 to 38.9 in adult Diarrhea History of bipolar disorder Migraine Nausea PCOS (polycystic ovarian syndrome) Vomiting Previous Surgical History PAST SURGICAL HISTORY Procedure Laterality Date COLONOSCOPY FLX DX W/COLLJ SPEC WHEN PFRMD 09/10/14 Colonoscopy ESOPHAGOGASTRODUODENOSCOPY TRANSORAL DIAGNOSTIC 09/10/14 EGD PAST SURGICAL HISTORY OF 06/2007 left arm surgery (broken arm) Family History FAMILY HISTORY Problem Relation Age of Onset Hypertension Mother obese/hypothyroid Bipolar disorder Mother Schizophrenia Mother Bipolar disorder Sister other (SC) Maternal Grandfather Age 40 SC Diabetes Paternal Grandmother Ischemic Heart Disease Paternal Grandmother Kidney failure Paternal Grandmother Suicide / Suicidal Behaviors Paternal Grandfather Patient Allergies ALLERGIES Allergen Reactions Penicillins Hives face swelling Sulfa (Sulfonamide * Hives Current Medications Current Outpatient Medications on File Prior to Visit Medication Sig phenazopyridine (PYRIDIUM) 200 mg tablet Take 1 tablet by mouth three times daily as needed. (Patient not taking: Reported on 10/11/2022) QUEtiapine XR (SEROQUEL XR) 50 mg Tb24 Take 1 tablet by mouth daily at bedtime. (Patient not taking: Reported on 11/23/2021) meclizine (ANTIVERT) 12.5 mg tab Take 1 tablet by mouth every 6 hours as needed (dizziness). (Patient not taking: Reported on 04/21/2022) SUMAtriptan (IMITREX) 50 mg tablet Take 1 tablet by mouth as needed for Migraine Headache (see administration instructions). (Patient not taking: Reported on 04/21/2022) No current facility-administered medications on file prior to visit. Social History Social History Tobacco Use Smoking status: Never Smokeless tobacco: Never Vaping Use Vaping Use: Never used Substance Use Topics Alcohol use: No Drug use: No Review of Symptoms REVIEW OF SYSTEMS GENERAL: No weight loss, malaise or fevers HEENT: No changes in hearing or vision, Admits to nosebleeds. NECK: Negative for lumps, goiter, pain and significant neck swelling. RESPIRATORY: Negative for cough, hemoptysis, wheezing, COPD, dyspnea or shortness of breath CARDIOVASCULAR: Negative for chest pain, leg swelling, hypertension, CHF or palpitations GI: No nausea, vomiting, or diarrhea : No history of dysuria, frequency or incontinence [employer]ING: Negative for abnormal vaginal bleeding, abnormal vaginal discharge MUSCULOSKELETAL: See HPI SKIN: Negative for lesions, rash, and itching PSYCH: See HPI HEMATOLOGY/LYMPHOLOGY: Negative for prolonged bleeding, bruising easily or swollen nodes ENDOCRINE: Negative for cold or heat intolerance, polyuria, polydipsia and goiter NEURO: No history of headaches, syncope, paralysis, seizures or tremors EXAM: BP 126/76 Pulse 100 Resp 16 Ht 167 cm (5' 5.75 ) Wt 105.9 kg (233 lb 6.4 oz) LMP 10/11/2022 SpO2 97% BMI 37.96 kg/m? General Appearance: Well appea (more content not included)... [facility] 04-22-2022 Miscellaneous Notes Left message for patient with results and recommendations.Anna Cox LPN Phone call placed brief message to contact a nurse to review results, MyChart log on 04/22/2022. Marisa Horton LPN Please call and let patient know her urine culture showed that it was likely contaminated by skin bacteria on collection. Recommend finishing the antibiotic and if symptoms do not improve to follow-up with PCP for another urine culture. documented in this encounter [facility] 04-21-2022 History of Presen t illness Narrative This note was created using [email or web address]. Subjective Lizzie Argueta is a 26 year old female. 26 year old female with no PMH presents for think I have a UTI Acute onset 04/18/22 +burning +suprapubic pressure +dysuria +frequency +urgency X 1 episode of emesis yesterday States she was recently sexually active. Denies concerns for STI Last UTI was last October LMP-last week The history is provided by the patient. No certified court/medical interpreter was used. UTI This is a new problem. The current episode started more than 2 days ago. The problem occurs every urination. The problem has not changed since onset.The quality of the pain is described as burning. The pain is at a severity of 5/10. The pain is mild. There has been no fever. She is Sexually active. There is No history of pyelonephritis. Associated symptoms include nausea, vomiting (x 1), frequency and urgency. Pertinent negatives include no chills, no sweats, no discharge, no hematuria, no hesitancy, no possible and no flank pain. She has tried nothing for the symptoms. Her past medical history does not include kidney stones, single kidney, urological procedure, recurrent UTIs, urinary stasis or catheterization. PAST MEDICAL HISTORY Diagnosis Date Abdominal pain Class 2 obesity due to excess calories without serious comorbidity with body mass index (BMI) of 38.0 to 38.9 in adult Diarrhea History of bipolar disorder Nausea PCOS (polycystic ovarian syndrome) Vomiting PAST SURGICAL HISTORY Procedure Laterality Date COLONOSCOPY FLX DX W/COLLJ SPEC WHEN PFRMD 09/10/14 Colonoscopy ESOPHAGOGASTRODUODENOSCOPY TRANSORAL DIAGNOSTIC 09/10/14 EGD PAST SURGICAL HISTORY OF 06/2007 left arm surgery (broken arm) ALLERGIES Penicillins and Sulfa (Sulfonamide Antibiotics) MEDICATIONS nitrofurantoin monohydrate and macrocrystal (MACROBID) 100 mg capsule Take 1 capsule by mouth twice daily for 5 days. phenazopyridine (PYRIDIUM) 200 mg tablet Take 1 tablet by mouth three times daily as needed. QUEtiapine XR (SEROQUEL XR) 50 mg Tb24 Take 1 tablet by mouth daily at bedtime. (Patient not taking: Reported on 11/23/2021) meclizine (ANTIVERT) 12.5 mg tab Take 1 tablet by mouth every 6 hours as needed (dizziness). (Patient not taking: Reported on 04/21/2022) SUMAtriptan (IMITREX) 50 mg tablet Take 1 tablet by mouth as needed for Migraine Headache (see administration instructions). (Patient not taking: Reported on 04/21/2022) FAMILY HISTORY Problem Relation Age of Onset Hypertension Mother obese/hypothyroid Bipolar disorder Mother Schizophrenia Mother Bipolar disorder Sister other (SC) Maternal Grandfather Age 40 SC Diabetes Paternal Grandmother Ischemic Heart Disease Paternal Grandmother Kidney failure Paternal Grandmother Suicide / Suicidal Behaviors Paternal Grandfather Social History Tobacco Use Smoking status: Never Smokeless tobacco: Never Vaping Use Vaping Use: Never used Substance Use Topics Alcohol use: No Drug use: No Review of Systems Constitutional: Negative for chills, fatigue and fever. Respiratory: Negative for apnea, choking, chest tightness, shortness of breath and stridor. Cardiovascular: Negative for chest pain, palpitations and leg swelling. Gastrointestinal: Positive for nausea and vomiting (x 1). Negative for abdominal pain. Genitourinary: Positive for dysuria, frequency and urgency. Negative for flank pain, hematuria and hesitancy. Musculoskeletal: Negative for arthralgias, back pain and gait problem. Skin: Negative for color change, pallor and rash. Allergic/Immunologic: Negative for environmental allergies, food allergies and immunocompromised state. Neurological: Negative for dizziness, facial asymmetry, light-headedness, numbness and headaches. Hematological: Negative for adenopathy. Does not bruise/bleed easily. Psychiatric/Behavioral: Negative for agitation and behavioral problems. Objective BP 128/82 Pulse 72 Temp 36.4 C (97.5 F) (Tympanic) Resp 18 Wt 105.3 kg (232 lb 3.2 oz) LMP 11/15/2021 (Exact Date) SpO2 99% BMI 37.48 kg/m Physical Exam Vitals and nursing note reviewed. Constitutional: General: She is not in acute distress. Appearance: Normal appearance. She is normal weight. She is not ill-appearing, toxic-appearing or diaphoretic. HENT: Head: Normocephalic and atraumatic. Right Ear: Ear canal and external ear normal. Left Ear: Ear canal and external ear normal. Nose: Nose normal. No congestion or rhinorrhea. Mouth/Throat: Mouth: Mucous membranes are moist. Pharynx: No oropharyngeal exudate or posterior oropharyngeal erythema. Eyes: General: Right eye: No discharge. Left eye: No discharge. Extraocular Movements: Extraocular movements intact. Conjunctiva/sclera: Conjunctivae normal. Pupils: Pupils are equal, round, and reactive to light. Cardiovascular: Rate and Rhythm: Normal rate and regular rhythm. Pulses: Normal pulses. Heart sounds: Normal heart sounds. No murmur heard. No friction rub. Pulmonary: Effort: Pulmonary effort is normal. No respiratory distress. Breath sounds: Normal breath sounds. No stridor. No wheezing, rhonchi or rales. Chest: Chest wall: No tenderness. Abdominal: General: Abdomen is flat. There is no distension. Palpations: Abdomen is soft. There is no mass. Tenderness: There is no abdominal tenderness. There is no right CVA tenderness, left CVA tenderness, guarding or rebound. Hernia: No hernia is present. Musculoskeletal: General: No swelling, tenderness, deformity or signs of injury. Normal range of motion. Cervical back: Normal range of motion and neck supple. No rigidity. Right lower leg: No edema. Left lower leg: No edema. Lymphadenopathy: Cervical: No cervical adenopathy. Skin: General: Skin is warm and dry. Capillary Refill: Capillary refill takes less than 2 seconds. Coloration: Skin is not jaundiced or pale. Findings: No bruising, erythema, lesion or rash. Neurological: General: No focal deficit present. Mental Status: She is alert and oriented to person, place, and time. Cranial Nerves: No cranial nerve deficit. Sensory: No sensory deficit. Motor: No weakness. Coordination: Coordination normal. Gait: Gait normal. Psychiatric: Mood and Affect: Mood normal. Behavior: Behavior normal. Thought Content: Thought content normal. Judgment: Judgment normal. Assessment and Plan ASSESSMENT/PLAN: 1. Dysuria - ICD9: 788.1, ICD10: R30.0 acute - UA positive for reanna esterase, hematuria, and nitrates - Send urine for culture - Begin treatment with Macrobid RX Pyridium - Patient education for prevention given - UA DIP, URINE (POC) - URINE CULTURE Zonia Eid APRN.[employer] documented in this encounter [facility] 11-23-2021 History of Presen t illness Narrative Subjective HPI Lizzie ARGUETA is a 26 year old female who presents with urinary urgency, frequency and dysuria. She has been having these symptoms for one day. She has not taken any medication for this today. Review of Systems Constitutional: Negative for fever. Respiratory: Negative. Cardiovascular: Negative. Gastrointestinal: Negative for abdominal pain, nausea and vomiting. Genitourinary: Positive for dysuria, frequency and urgency. Negative for flank pain and hematuria. Musculoskeletal: Negative for back pain. BP 126/78 Pulse 95 Temp 36.4 C (97.6 F) Resp 16 Wt 107.5 kg (237 lb) LMP 11/15/2021 (Exact Date) SpO2 99% BMI 38.25 kg/m PAST MEDICAL HISTORY Diagnosis Date Abdominal pain Class 2 obesity due to excess calories without serious comorbidity with body mass index (BMI) of 38.0 to 38.9 in adult Diarrhea History of bipolar disorder Nausea PCOS (polycystic ovarian syndrome) Vomiting PAST SURGICAL HISTORY Procedure Laterality Date COLONOSCOPY FLX DX W/COLLJ SPEC WHEN PFRMD 09/10/14 Colonoscopy ESOPHAGOGASTRODUODENOSCOPY TRANSORAL DIAGNOSTIC 09/10/14 EGD PAST SURGICAL HISTORY OF 06/2007 left arm surgery (broken arm) ALLERGIES Penicillins and Sulfa (Sulfonamide Antibiotics) MEDICATIONS meclizine (ANTIVERT) 12.5 mg tab Take 1 tablet by mouth every 6 hours as needed (dizziness). SUMAtriptan (IMITREX) 50 mg tablet Take 1 tablet by mouth as needed for Migraine Headache (see administration instructions). nitrofurantoin monohydrate and macrocrystal (MACROBID) 100 mg capsule Take 1 capsule by mouth twice daily for 5 days. QUEtiapine XR (SEROQUEL XR) 50 mg Tb24 Take 1 tablet by mouth daily at bedtime. (Patient not taking: Reported on 11/23/2021) FAMILY HISTORY Problem Relation Age of Onset Hypertension Mother obese/hypothyroid Bipolar disorder Mother Schizophrenia Mother Bipolar disorder Sister other (SC) Maternal Grandfather Age 40 SC Diabetes Paternal Grandmother Ischemic Heart Disease Paternal Grandmother Kidney failure Paternal Grandmother Suicide / Suicidal Behaviors Paternal Grandfather Social History Tobacco Use Smoking status: Never Smokeless tobacco: Never Vaping Use Vaping Use: Never used Substance Use Topics Alcohol use: No Drug use: No Objective Physical Exam Vitals and nursing note reviewed. Constitutional: Appearance: She is obese. Cardiovascular: Rate and Rhythm: Normal rate and regular rhythm. Heart sounds: Normal heart sounds. Pulmonary: Effort: Pulmonary effort is normal. Breath sounds: Normal breath sounds. Abdominal: General: There is no distension. Palpations: Abdomen is soft. There is no mass. Tenderness: There is abdominal tenderness (suprapubic) in the suprapubic area. There is no right CVA tenderness, left CVA tenderness or guarding. Skin: General: Skin is warm and dry. Neurological: Mental Status: She is alert. ASSESSMENT/PLAN: 1. Urinary frequency - ICD9: 788.41, ICD10: R35.0 acute - UA positive for reanna esterase and hematuria - Send urine for culture - Begin treatment with Macrobid 100 mg BID for 5 days - Patient education for prevention given - URINE CULTURE - Follow-up with your PCP in 3-5 days if symptoms have not improved or sooner if symptoms worsen - Discussed red flags and need for immediate medical evaluation if any occur. - Discussed supportive care treatment with fluids, rest and analgesia. - Discussed expected course of illness Na Sarabia APRN.CNP documented in this encounter [facility] 11-23-2021 Instructions Na Sarabia APRN.CNP - 11/23/2021 10:13 AM EDT ASSESSMENT/PLAN: 1. Urinary frequency - ICD9: 788.41, ICD10: R35.0 acute - UA positive for reanna esterase and hematuria - Send urine for culture - Begin treatment with Macrobid 100 mg BID for 5 days - Patient education for prevention given - URINE CULTURE - Follow-up with your PCP in 3-5 days if symptoms have not improved or sooner if symptoms worsen - Discussed red flags and need for immediate medical evaluation if any occur. - Discussed supportive care treatment with fluids, rest and analgesia. - Discussed expected course of illness Na Sarabia APRN.[facility] PATIENT INFO BLADDER INFECTION OVERVIEW Bladder infections are one of the most common infections, causing symptoms of burning with urination and needing to urinate frequently. A bladder infection is a type of urinary tract infection (UTI). Bladder infections are more common is women than men. Most women have an uncomplicated bladder infection that is easily treated with a short course of antibiotics. In men, bladder infections may also affect the prostate gland, and a longer course of treatment may be needed. BLADDER INFECTION CAUSES The urinary tract includes the kidneys (which filter urine), ureters (the tube that carries urine from the kidneys to the bladder), the bladder (which stores urine), and urethra (the tube that carries urine out of the bladder). Bacteria do not normally live in these areas. However, bacteria normally live close to the urethra in women and men who are not circumcised. Bladder infections occur when bacteria travel up the urethra into the bladder. Factors that increase the risk of developing a bladder infection include: Vaginal sex Use of spermicides History of past bladder infections Diabetes In men, not being circumcised or having anal sex increase the risk of bladder infections. BLADDER INFECTION SYMPTOMS The typical symptoms of a bladder infection include: Pain or burning when urinating Frequent need to urinate Urgent need to urinate Blood in the urine Fever, back pain, nausea, or vomiting are not common symptoms of a bladder infection, but can occur in people with a kidney infection (pyelonephritis). If you have these symptoms, you should call your doctor or nurse immediately. Is it a bladder infection or something else? -- Burning with urination can also occur in people with vaginitis (eg, yeast infection) or urethritis (inflammation of the urethra). For this reason, it is important to call your healthcare provider before assuming you have a bladder infection. BLADDER INFECTION DIAGNOSIS Simple bladder infections are usually diagnosed based upon your symptoms alone. However, most patients, especially those who have bladder infection symptoms for the first time, should see a healthcare provider for urine testing. Urine culture -- A urine culture is a test that uses a sample of urine to try and grow bacteria in a laboratory. It usually requires about 48 hours to get results. However, a urine culture is not always required to diagnose a bladder infection. Urine culture is often recommended if: You have never had a bladder infection before You have symptoms that are not typical for bladder infection You have had resistant bladder infections before You have frequent bladder infections You do not begin to feel better within 24 to 48 hours after starting antibiotics You are BLADDER INFECTION TREATMENT Bladder infection -- In young, healthy adolescents and adults with a bladder infection, the usual treatment includes a three to seven day course of antibiotics. The typical drugs chosen are: trimethoprim-sulfamethoxazole (Bactrim ), nitrofurantoin (Macrobid ), ciprofloxacin (Cipro ) or levofloxacin (Levaquin ). In men, the infection may involve your prostate gland and treatment is usually given for at least 7 days. Your symptoms should begin to resolve within one day after starting treatment. It is important to take the full course of antibiotics to completely eliminate the infection. If your symptoms persist for more than two or three days after starting treatment, call your healthcare provider. If needed, you can take a prescription medication that numbs the bladder and urethra (phenazopyridine [Pyridium ]) to reduce the burning pain of some UTIs. A similar medication is available without a prescription (eg, Uristat). Both medications change the color of the urine (usually blue or orange) and can interfere with laboratory testing. You should not take these medications for more than 48 hours due to the risk of side effects. These medications do not treat the infection and must be taken along with an antibiotic. Some providers recommend drinking more fluids while treating bladder infections to help flush bacteria from the bladder. Others believe that drinking more fluids may dilute the antibiotic in the bladder and make the medication less effective. No studies have been performed to address this issue. There are also no good studies on the effectiveness of cranberry juice for treating a bladder infection; we do not recommend using cranberry juice to treat bladder infections. Follow-up care -- Follow-up testing is not needed in healthy, young men or women with a bladder infection if symptoms resolve. women are usually asked to have a repeat urine culture one to two weeks after treatment has ended to make sure the bacteria are no longer in the urine. RECURRENT BLADDER INFECTIONS Bladder infections versus other causes -- Some adults, especially women, develop bladder infections frequently. In this case, it is important to confirm that your symptoms (eg, pain or burning, frequency, and urgency) are caused by a bladder infection. Symptoms are usually similar from one infection to another. The best way to confirm an infection is to have a urine culture. If your urine culture is negative for infection, other causes of pain, burning, and frequency should be investigated. There is no reason to take antibiotics if your urine culture is negative. Need for further testing -- If you continue to develop bladder infections, you may require further testing. If you continue to notice blood in your urine after your bladder infection has cleared, you should have further testing. Preventing recurrent UTIs -- Women with recurrent urinary tract infections may be advised to take steps to prevent bladder infections, including one or more of the following: Changes in control -- Women who develop frequent bladder infections and use spermicides, particularly those who also use a diaphragm, may be encouraged to use an alternate method of control. Cranberry products -- Taking cranberry juice or cranberry tablets has been promoted as one way to help prevent frequent bladder infections. However, this has not been proven. Drinking more fluid and urinating after intercourse -- Although studies have not proven that drinking more fluids or urinating soon after intercourse can prevent infection, some healthcare providers recommend these measures since they are not harmful. Drinking more fluid may help to wash out bacteria that enter the bladder. Postmenopausal women -- Postmenopausal women who develop recurrent bladder infections may benefit from using vaginal estrogen. Vaginal estrogen is available in a flexible ring that is worn in the vagina for three months (eg, Estring ), a small tablet (Vagifem ), or a cream (eg, Premarin or Estrace ). Vaginal estrogen is discussed in more detail in a separate topic review. Antibiotics -- A preventive antibiotic treatment may be recommended if you repeatedly develop bladder infections and have not responded to other preventive measures. Antibiotics are highly effective in preventing recurrent bladder infections and can be taken in several different ways. Preventive antibiotic -- You can take a low dose of an antibiotic once per day or three times per week for six months to several years. Antibiotics following intercourse -- In women who develop urinary tract infections after sex, taking a single low dose antibiotic after intercourse can help to prevent bladder infections. Self-treatment -- A plan to begin antibiotics at the first sign of a bladder infection may be recommended in some situations. Before starting this regimen, it is important that you have had testing (urine cultures) to confirm that your symptoms are caused by a bladder infection; some people have symptoms of a bladder infection but do not actually have an infection. documented in this encounter [facility] D[facility]- [facility] Diagnosis Migraine with aura and without status migrainosus, not intractable- Primary Migraine with aura, without mention of intractable migraine without mention of status migrainosus Chronic pain of left ankle Class 2 obesity due to excess calories without serious comorbidity with body mass index (BMI) of 36.0 to 36.9 in adult [facility] Diagnosis Migraine with aura and without status migrainosus, not intractable Migraine with aura, without mention of intractable migraine without mention of status migrainosus [facility] Diagnosis Positive test- Primary examination or test, positive result documented in this encounter [facility] Summary Purpose Family History No Family History Records FoundNo Family History Records FoundNo Family History Records Found Advance Directives No Advanced Directives Records FoundNo Advanced Directives Records FoundNo Advanced Directives Records Found Reason for Referral Specialty Diagnoses / Procedures Referred By Mally t Referred To Contact Diagnoses Positive test Procedures 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 OFFICE/OUTPATIENT [facility] 60 MINUTES Alyssia Pichardo MD [address] [place] [address] Referral ID Status Reason Start Date Expiration Date Visits Requested Visits Authorized [id number] Authorized PCP Requested Referral Auto-Generate d Referral 05/23/2023 05/22/2024 1 1 Additional Source Comments INFORMATION SOURCE (unrecogn ized section and content) DATE CREATED AUTHOR AUTHOR'S ORGANIZ ATION 08/14/2020 [facility] DATE CREATED AUTHOR AUTHOR'S ORGANIZ ATION 05/25/2023 [facility] <item> Privacy Markings (unrecogniz ed section and content) Section Author: Amanda Cary PROHIBITION ON REDISCLOSURE OF CONFIDENTIAL INFORMATION This notice accompanies a disclosure of information concerning a client made to you with the consent of such client. Source Comments (unrecognize d section and content) In the event this informatio n is protected by the Federal Confidentiality of Alcohol and Drug Abuse Patient Records regulations: The Federal rules restrict any use of the information to criminally investigate or prosecute any alcohol or drug abuse patient.[facility] the event this information is protected by the Federal Confidentiality of Alcohol and Drug Abuse Patient Records regulations: The Federal rules restrict any use of the information to criminally investigate or prosecute any alcohol or drug abuse patient.[facility] System[facility] the event this information is protected by the Federal Confidentiality of Alcohol and Drug Abuse Patient Records regulations: The Federal rules restrict any use of the information to criminally investigate or prosecute any alcohol or drug abuse patient.[facility] System[facility] the event this information is protected by the Federal Confidentiality of Alcohol and Drug Abuse Patient Records regulations: The Federal rules restrict any use of the information to criminally investigate or prosecute any alcohol or drug abuse patient.[facility] System[facility] the event this information is protected by the Federal Confidentiality of Alcohol and Drug Abuse Patient Records regulations: The Federal rules restrict any use of the information to criminally investigate or prosecute any alcohol or drug abuse patient.[facility] System[facility] the event this information is protected by the Federal Confidentiality of Alcohol and Drug Abuse Patient Records regulations: The Federal rules restrict any use of the information to criminally investigate or prosecute any alcohol or drug abuse patient.[facility] System[facility] the event this information is protected by the Federal Confidentiality of Alcohol and Drug Abuse Patient Records regulations: The Federal rules restrict any use of the information to criminally investigate or prosecute any alcohol or drug abuse patient.[facility] System[facility] the event this information is protected by the Federal Confidentiality of Alcohol and Drug Abuse Patient Records regulations: The Federal rules restrict any use of the information to criminally investigate or prosecute any alcohol or drug abuse patient.[facility] Reason for Visit (unrecogniz ed section and content) Reason Comments Urinary Frequency Frequency, burning a nd pressure x 3 days Reason Comments Results Reason Comments Follow Up Reason Comments Refill Request change of pharmacy jaden syed send to [facility] [place] Reason Comments Patient Question Care Teams (unrecognized sec tion and content) English Professor Relationship Specialty Start Date End Date Mrayam Smith [address] [place] [address] PCP - General Family Medicine 05/04/15 English Professor Relationship Specialty Start Date End Date Maryam Smith [address] [place] [address] PCP - General Family Medicine 05/04/15 English Professor Relationship Specialty Start Date End Date Alyssia Pichardo MD [address] [place] [address] PCP - General Family Medicine 10/11/22 English Professor Relationship Specialty Start Date End Date Alyssia Pichardo MD [address] [place], [place] [id number] PCP - General Family Medicine 10/11/22 English Professor Relationship Specialty Start Date End Date Alyssia Pichardo MD [address] [facility] [place] [address] PCP - General Family Medicine 10/11/22 English Professor Relationship Specialty Start Date End Date Alyssia Pichardo MD [address] [place], [place] [id number] PCP - General [facility] Medicine 10/11/22 English Professor Relationship Specialty Start Date End Date Alyssia Pichardo MD [address] [place], [place] [id number] PCP - General Family Medicine 10/11/22 FOR RECORDS PERTAINING TO PATIENTS WHO ARE OR HAVE BEEN ENROLLED IN A CHEMICAL DEPENDENCY/SUBSTANCEABUSE PROGRAM, SOME INFORMATION MAY BE OMITTED. This clinical summary was aggregated from multiple sources. Caution should be exercised in using it in the provision of clinical care. This summary normalizes information from multiple sources, and as a consequence, information in this document may materially change the coding, format and clinical context of patient data. In addition, data may be omitted in some cases. CLINICAL DECISIONS SHOULD BE BASED ON THE PRIMARY CLINICAL RECORDS. [facility]. provides no warranty or guarantee of the accuracy or completeness of information in this document.
[2023-05-26 12:14] LABS: hCG Titer Quant., Serum 525 mIU/mL (1-3)
== END | disposition home or self-care (01) ==
LOC: LAB 10:28
PROVIDERS: PCP Family Medicine; Referring Provider Advanced Practice Midwife; Visit Provider Advanced Practice Midwife
DX: Z34.90 Encounter for supervision of normal pregnancy, unspecified, unspecified trimester (principal)
CPT/HCPCS: 36415; 84702

== ENCOUNTER → 2023-06-15 | Outpatient (CLI) | payer OTHER, SELFPAY ==
[2023-06-15 12:54] LABS: Absolute Lymphocyte Count 1.94 X10^3/uL (0.83-4.51); Absolute Neutrophil Count 9.2 X10^3/uL (2.0-7.7); Basophil# 0.05 X10^3/uL; Basophil% 0.4 % (0-1); Eosinophil# 0.12 X10^3/uL; Hematocrit 37.5 % (37-47); Hemoglobin 12.1 g/dL (12.0-15.0); Lymphocyte # 1.94 X10^3/ul (0.83-4.51); Lymphocyte % 16.2 % (19-41); Mean Corp Hgb Conc 32.3 g/dL (32-36); Mean Corpuscular Hgb 25.7 pg (27.0-32.0); Mean Corpuscular Volume 79.8 fL (81-99); Mean Platelet Vol. 9.9 fl (6.2-12.0); Monocyte# 0.64 X10^3/uL; Monocyte% 5.3 % (0-10); NRBC Flagged by Analyzer 0 % (0-5); Neutrophil # 9.16 X10^3/uL (2.7-7.7); Neutrophil % 76.4 % (47-70); Platelet Count 274 K/mm3 (150-450); RBC Distribution Width CV 13.9 % (11.6-14.6); RBC Distribution Width SD 40.1 fl (35.1-43.9)
[2023-06-15 13:13] LABS: Hemoglobin A1c 5.3 % (3.8-5.6)
[2023-06-15 13:23] LABS: ALB/GLOB Ratio 0.8 RATIO (0.9-2.4); AST(SGOT) 14 U/L (15-37); Alanine Aminotransfer ALT/SGPT 17 U/L (13-56); Albumin, Serum 3.4 g/dL (3.2-5.0); Alkaline Phosphatase 75 U/L (45-117); Anion Gap 6 (5-15); BUN 9 mg/dL (7-18); BUN/Creat Ratio 14.4 RATIO (10-20); Calcium,Total 9.6 mg/dL (8.5-10.1); Chloride 107 mmol/L (98-107); Creatinine, Serum 0.62 mg/dL (0.55-1.02); EST Glomerular Filtration Rate 121 mL/min (>60); Est Glom Filt Rate - Afr Amer 146 mL/min (>60); Globulin 4.3 g/dL (2.2-4.2); Glucose 82 mg/dL (74-106); Potassium 3.5 mmol/L (3.5-5.1); Protein, Total 7.7 g/dL (6.4-8.2); Sodium Level 138 mmol/L (136-145)
[2023-06-15 14:03] LABS: HIV - WCH Non-Reactive (Nonreactive); Hepatitis B Surface Antigen Non-Reactive (Nonreactive); Hepatitis C Antibody Non-Reactive (Nonreactive); Rubella IgG Reactive (Nonreactive); Syphilis Antibodies Non-reactive
[2023-06-15 17:00] LABS: Protein, Urine (Random) 11.2 mg/dL (<11.9); Protein:Creat Ratio 88 mg/g CRE (0-200)
[2023-06-20 05:07] LABS: Chlamydia By Nucleic Acid AMP Negative (Negative); Gonococcus By Nucleic Acid AMP Negative (Negative)
[2023-06-22 12:49] LABS: HPV Reflexed? NOT INDICATED
== END | disposition home or self-care (01) ==
PROVIDERS: PCP Family Medicine; Referring Provider Advanced Practice Midwife; Visit Provider Advanced Practice Midwife
DX: O16.9 Unspecified maternal hypertension, unspecified trimester (principal); O99.210 Obesity complicating pregnancy, unspecified trimester; Z3A.00 Weeks of gestation of pregnancy not specified
CPT/HCPCS: 36415; 80053; 82570; 83036; 84156; 85025; 86703; 86762; 86780; 86803; 86850; 86900; 86901; 87086; 87088; 87340; 87491; 87591; 88175; G0145

== ENCOUNTER 2023-07-09 03:36 | Emergency (ER) | payer OTHER, SELFPAY ==
[2023-07-09 03:37] VITALS: BP 157/80; PULSE 102; RESP 18; TEMP 36.6; O2SAT 100; BMI 35.9
--- NOTE | 2023-07-09 04:08 | EDS_ITS ---
HPI HPI - Female History of Present Illness Chief Complaint: Vag Bld, Preg Informant: patient Narrative Narrative: Patient presents secondary to vaginal bleeding. She is approximately 12 weeks . She had 1 previous miscarriage. She states she felt well when she went to bed last night. She woke up at 3 AM to go the bathroom and was passing large amounts of blood with clots. She is not having significant abdominal cramping. No recent intercourse. Blood type is O+. PFSH PFSH Medical History Anxiety History of miscarriage Migraine headache Missed Non-smoker Wears contact lenses Wears glasses Home Medications multivitamin no.47-iron fum 27 mg-folate no.1 1 mg-dha 300 mg capsule (PNV-DHA) cap PO 06/13/23 [History Last Taken Unknown] Allergy/AdvReac Type Severity Reaction Status Date / Time Penicillins [PCN] Allergy Swelling Verified 06/15/23 11:26 Sulfa (Sulfonamide Allergy Hives Verified 06/15/23 11:26 Antibiotics) Family History Mother Hypertension Grandmother Hypertension Aunt Ovarian cancer Surgical History H/O dilation and curettage S/P dilation and curettage s/p left arm surgery Social History adopted: No household members: spouse, children and other details: custody of niece born 08/30/20 number of children: 1 current occupational status: employed 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[employer] pets and animals: Yes pets and animals: dog(s) history of recent travel: No sexually active: Yes Smoking Status: Never smoker alcohol intake: never substance use type: does not use well-balanced diet: daily or most days caffeine: No eating out: 1-3 times/week during the past year weight has: decreased > 10 lbs what type of physical activity do you participate in: running frequency: 3-4 times per week duration: 30-45 minutes/day juju/mandaen: [employer] seatbelt use: always do you feel safe at home: Yes additional social history: - [place] ROS ROS ED Constitutional Constitutional ED: Denies chills or fever(s) Eyes Eyes: Denies discharge from eye(s) ENT ENT ED: Denies discharge from eye(s), rhinorrhea or sore throat Cardiovascular Cardiovascular: Denies chest pain Respiratory/Chest Respiratory/Chest: Denies cough or dyspnea Gastrointestinal Gastrointestinal: Denies abdominal pain, nausea or vomiting Genitourinary Genitourinary ED: Reports other Details: Vaginal bleeding with clots ; Denies dysuria Musculoskeletal Musculoskeletal: Denies back pain or extremity pain Integumentary Denies Abrasions or rash Neurologic Neurologic: Denies headache(s) or weakness Psychiatric Psychiatric: Denies anxiety or depression Allergic/Immunologic Allergic/Immunologic ED: Denies lip swelling or urticaria EXAM Physical Exam Const Vital Signs: 07/09/23 03:37 07/09/23 05:36 07/09/23 06:39 Temperature 97.8 F Temperature Source Temporal Pulse Rate 102 H 99 88 Respiratory Rate 18 18 14 Blood Pressure 157/80 H 139/80 H 145/86 H Blood Pressure Mean 105 99 105 Pulse Ox 100 100 97 Oxygen Delivery Method Room Air Room Air Room Air Positive well nourished and well developed General Appearance ED: well developed HEENT Reports moist mucous membranes Eyes EOMs intact bilaterally Chest Wall inspection of chest normal and palpation of chest normal Resp normal respiratory effort and clear to auscultation bilaterally Cardio regular rate and regular rhythm GI soft to palpation and non-tender Extremity normal to inspection Neuro oriented x3 and no sensory deficits noted Psych Mood & Affect: tearful MDM MDM MDM Narrative Medical decision making narrative: IV line established. Labwork obtained to evaluate for leukocytosis, anemia, and electrolyte derangement. Urinalysis obtained to evaluate for infection/hematuria. History & Record Review Discussion w/independent historian: Patient Lab Data Attestation: I reviewed the patient's lab results. Labs: Laboratory Results - last 24 hr 07/09/23 07/09/23 04:08 04:15 WBC 10.2 RBC 4.68 Hgb 12.0 Hct 37.3 MCV 79.7 L MCH 25.6 L MCHC 32.2 RDW Std Deviation 40.1 RDW Coeff of Evy 14.0 Plt Count 211 MPV 10.1 Immature Gran % (Auto) 0.400 Neut % (Auto) 73.3 H Lymph % (Auto) 19.9 [place] % (Auto) 4.7 Eos % (Auto) 1.3 Baso % (Auto) 0.4 Absolute Neuts (auto) 7.5 Absolute Lymphs (auto) 2.03 Nucleated RBC % 0 HCG, Quant 89575 H Urine Color Red Urine Clarity Cloudy Urine pH 5.0 Ur Specific [place] 1.025 Urine Protein 100 H Urine Glucose (UA) Normal Urine Ketones 5 H Urine Occult Blood 250 H Urine Nitrite Negative Urine Bilirubin Negative Urine Urobilinogen Normal Ur Leukocyte Esterase 25 H Urine RBC > 100 SEEN Urine WBC 5-10 SEEN Ur Squamous Epith Cells 0 SEEN Ur Transition Epith Cell 0 SEEN Ur Renal Epithelial Cell 0 SEEN Urine Bacteria 2+ Urine Mucus 0 SEEN Treatment and Re-Evaluation Narrative: CBC was normal white count at 10.2 with 73% neutrophils. Hem[place] 12[place] [id number]. Urinalysis shows RBCs with 2+ bacteria. Only 5-10 white cells noted. No nitrites. I did perform a bedside ultrasound. I do see fetus with fluid intact around the baby. I do see heart motion. Patient be observed until a.m. hours when formal ultrasound to be available to see if there is any evidence of a subchorionic bleed or other definitive cause. Patient will be written up with instructions for threatened miscarriage. Ultrasound report will be checked by oncoming physician. Discharge Plan Triage Chief Complaint: Vag Bld, Preg ED Provider: Michelle Grover Dx/Rx/DC Orders Clinical Impression: Threatened miscarriage Instructions: Miscarriage Threatened Prescriptions: No Action PNV-DHA 27 mg iron-1 mg -300 mg capsule PO Primary Care Provider: Gurwinder Pichardo Referrals: Gurwinder Pichardo MD [Primary Care Provider] - Nidia Sheth MD [Med Staff - Active Staff] - As soon as possible Disposition Disposition: Home, Self Care
[2023-07-09 04:25] LABS: Mucous, Urine 0 SEEN /hpf (<or=2+); Squamous Epithelial Cells - UA 0 SEEN /hpf (5-10)
[2023-07-09 04:26] LABS: Absolute Lymphocyte Count 2.03 X10^3/uL (0.83-4.51); Absolute Neutrophil Count 7.5 X10^3/uL (2.0-7.7); Basophil# 0.04 X10^3/uL; Basophil% 0.4 % (0-1); Eosinophil# 0.13 X10^3/uL; Eosinophils% 1.3 % (0-5); Hematocrit 37.3 % (37-47); Lymphocyte # 2.03 X10^3/ul (0.83-4.51); Lymphocyte % 19.9 % (19-41); Mean Corp Hgb Conc 32.2 g/dL (32-36); Mean Corpuscular Hgb 25.6 pg (27.0-32.0); Mean Corpuscular Volume 79.7 fL (81-99); Mean Platelet Vol. 10.1 fl (6.2-12.0); Monocyte# 0.48 X10^3/uL; Monocyte% 4.7 % (0-10); NRBC Flagged by Analyzer 0 % (0-5); Neutrophil # 7.47 X10^3/uL (2.7-7.7); Neutrophil % 73.3 % (47-70); Platelet Count 211 K/mm3 (150-450); RBC Distribution Width SD 40.1 fl (35.1-43.9); Red Blood Count 4.68 M/mm3 (4.2-5.4); White Blood Count 10.2 K/mm3 (4.4-11.0)
[2023-07-09 04:27] LABS: Color, Urine Red (Yellow); Glucose, Dipstick Normal (Normal); Ketone-Dipstick 5 mg/dl (Negative); Leukocyte Esterase-Dipstick 25 /ul (Negative); Nitrite-Dipstick Negative (Negative); Occult Blood-Urine 250 /ul (Negative); Protein-Dipstick 100 mg/dl (Negative); Specific Gravity, Urine 1.025 (1.002-1.030); Urine Bilirubin Dipstick Negative (Negative); Urine Clarity Cloudy (Clear); Urine Urobilinogen Normal (Normal)
[2023-07-09 04:54] LABS: Bacteria 2+ /hpf (None Seen); Red Blood Cells-Urine > 100 SEEN /hpf (0-5); Renal Epithelial Cells 0 SEEN /hpf (0-5); Transitional Epithelial - Ur 0 SEEN /hpf (0-5); White Blood Cells 5-10 SEEN /hpf (0-5)
[2023-07-09 05:00] LABS: hCG Titer Quant., Serum 35486 mIU/mL (1-3)
[2023-07-09 05:36] VITALS: BP 139/80; PULSE 99; RESP 18; O2SAT 100
--- NOTE | 2023-07-09 05:45 | US_ITS ---
INDICATION: bleeding AND PASSING CLOTS WITH EXAMINATION: Ultrasound US OB Transvaginal TECHNIQUE: Transabdominal pelvic ultrasound was performed. Grayscale, spectral waveform, and color flow Doppler evaluation of the adnexa. COMPARISON: No relevant prior comparison study available LMP: [Unknown Beta-hCG: Unknown FINDINGS: UTERUS: The uterus measures 4.3 x 10.2 x 7.8 cm. RIGHT OVARY: Not visualized. LEFT OVARY: Not visualized. FREE FLUID: None. INTRAUTERINE GESTATIONAL SAC(s) (size/shape): Single. Intrauterine gestational sac measuring about 5.4 cm in mean sac diameter which corresponds to approximately 11 weeks and 2 days. YOLK SAC: Identified measuring 5 mm. POLE: Identified CRL measures 4.3 mm corresponds approximately 11 weeks. ESTIMATED GESTATION AGE: 11 weeks and 1 day. HEART MOTION: 164 bpm. PLACENTA: Not visualized due to age. SUBCHORIONIC HEMORRHAGE: Complex area adjacent to gestational sac measuring about 5 cm consistent with subchorionic hemorrhage. Collapsing second gestational sac is possible. AMNIOTIC FLUID: Qualitatively normal. US/Transvaginal w/Preg US IMPRESSION: 1. Single live intrauterine . Estimated gestational age is 11 weeks and 1 day. The ALEKSANDR is 01/27/2024. 2. Complex lesion adjacent to the gestational sac could represent subchorionic hemorrhage. Collapsed second gestational sac is possible. Follow-up examination is recommended. Electronically Signed: Kyrie Mckeon MD at 8:14 EDT ,
[2023-07-09 06:39] VITALS: BP 145/86; PULSE 88; RESP 14; O2SAT 97
[2023-07-09 08:00] VITALS: BP 121/74; PULSE 80; RESP 16; O2SAT 98
[2023-07-09 08:37] VITALS: BP 121/74; PULSE 80; RESP 16; TEMP 36.2; O2SAT 100
== END 2023-07-09 08:38 | disposition home or self-care (01) ==
PROVIDERS: Emergency Provider Emergency Medicine; PCP Family Medicine; Visit Provider Emergency Medicine
DX: O20.0 Threatened abortion (principal); Z3A.11 11 weeks gestation of pregnancy
CPT/HCPCS: 76817; 81001; 84702; 85025; 99283; A4216

== ENCOUNTER → 2023-07-19 | Outpatient (CLI) | payer OTHER, SELFPAY ==
--- NOTE | 2023-07-19 16:15 | US_ITS ---
STUDY: FIRST TRIMESTER OBSTETRICAL ULTRASOUND REASON FOR EXAM: Female, 27 years old Threatened . Follow up examination, LMP: April 20, 2023. TECHNIQUE: Transvaginal TECHNICAL QUALITY: Adequate. PRIOR ULTRASOUND: Comparison is made with prior study July 09, 2023. FINDINGS: There is visualization of a single gestational sac in a normal intrauterine position. The mean sac diameter (MSD) measures 6.02 cm, indicating an estimated gestational age (EGA) of 12 weeks, 1 days. The gestational sac shape is within normal limits. There is no demonstrated yolk sac. The placenta is non-visualized. There is visualization of a live embryo. The crown-rump length (CRL) measures 6.6 cm, indicating an estimated gestational age (EGA) of 12 weeks, 6 days. There is demonstrated cardiac activity with a heart rate of 159 bpm. The estimated gestation age (EGA) by LMP is 12 weeks, 6 days. The estimated date of delivery (ALEKSANDR) by LMP is January 25, 2024. The estimated gestation age (EGA) by US is 12 weeks, 4 days. The estimated date of delivery (ALEKSANDR) by US is January 27, 2024. The uterus measures 12.9 cm x 12.2 cm x 8.6 cm. Posterior to the gestational sac, there is a 4.9 cm x 5.2 cm x 1.9 cm complex cystic structure. This may represent subchorionic hemorrhage versus collapsed second gestational sac. This is unchanged. There is no demonstrated uterine fibroid. The cervix is closed. The right ovary measures 2.6 cm x 2.8 cm x 1.6 cm. There is no right ovarian cyst. There is no visualized right adnexal mass or complex lesion. The left ovary is not visualized. There is no fluid in the cul de sac. US/Transvaginal w/Preg US IMPRESSION: Single live intrauterine gestation with a mean gestational age of 12 weeks and 4 days. Persistent complex cystic density adjacent to the gestational sac. Electronically Signed: Trevor Singh MD at 11:18 EDT ,
== END | disposition home or self-care (01) ==
LOC: US 16:15
PROVIDERS: PCP Family Medicine; Referring Provider Nurse Practitioner Women's Health; Visit Provider Nurse Practitioner Women's Health
DX: O20.0 Threatened abortion (principal); Z3A.00 Weeks of gestation of pregnancy not specified
CPT/HCPCS: 76817

== ENCOUNTER → 2023-07-28 | Outpatient (CLI) | payer OTHER, SELFPAY ==
--- NOTE | 2023-07-28 16:18 | US_ITS ---
STUDY: SECOND AND THIRD TRIMESTER OBSTETRICAL ULTRASOUND - LIMITED REASON FOR EXAM: Female, 27 years old subchorionic hemorrhage follow up LMP: PRIOR ULTRASOUND: July 19, 2023 TECHNIQUE: Transabdominal TECHNICAL QUALITY: Adequate. FINDINGS: There is a single intrauterine fetus. The fetus is in a cephalic presentation. There is demonstrated cardiac activity with a heart rate of 144 bpm. Subchorionic hemorrhage noted measuring 6.5 x 3.6 x 2.3 cm. BIOMETRY: FL: 1.3: 14 weeks, 0 days Age by LMP: 14 weeks, 1 days. ALEKSANDR by LMP: January 25, 2024. age by prior US: 13 weeks, 6 days. ALEKSANDR by prior US: January 27, 2024. age by current US: 14 weeks, 0 days. ALEKSANDR by current US: January 26, 2024. There has been slight increase in size of the subchorionic bleed when compared with previous exam. US/OB Limited (No Biometrics) IMPRESSION: Persistent mild subchorionic hemorrhage with slight increase in size since previous study Electronically Signed: Luis Hui MD at 20:33 EDT ,
== END | disposition home or self-care (01) ==
LOC: US 16:18
PROVIDERS: PCP Family Medicine; Referring Provider Nurse Practitioner Women's Health; Visit Provider Nurse Practitioner Women's Health
DX: O20.8 Other hemorrhage in early pregnancy (principal); Z3A.14 14 weeks gestation of pregnancy
CPT/HCPCS: 76815

== ENCOUNTER → 2023-08-17 | Outpatient (CLI) | payer OTHER, SELFPAY ==
--- NOTE | 2023-08-17 13:31 | US_ITS ---
INDICATION: follow up on subchorionic hemorrhage EXAMINATION: US OB Limited 1 Or More Fetus TECHNIQUE: Transabdominal pelvic limited obstetric ultrasound was performed. COMPARISON: Obstetric ultrasound from 07/28/2023 FINDINGS: Single live intrauterine fetus in cephalic presentation with heart rate of 158 BPM. Posterior placenta with no placenta previa. Cervix is obscured by shadowing. Amniotic fluid within normal limits, largest pocket measuring 3.1 x 2.9 cm. Provided clinical estimated gestational age of 17 weeks 0 days with ALEKSANDR of 01/25/2024. anatomic survey and biometrics was not performed. Maternal adnexa are not imaged. Anterior subchorionic hematoma measures 3.3 x 1.2 x 3 cm, compared with 6.5 x 2.3 x 3.6 cm on prior exam. US/OB Limited (No Biometrics) IMPRESSION: Single live intrauterine with interval decreased size of known subchorionic hematoma. Electronically Signed: Niall Lerma MD at 22:59 EDT ,
== END | disposition home or self-care (01) ==
PROVIDERS: PCP Family Medicine; Referring Provider Advanced Practice Midwife; Visit Provider Advanced Practice Midwife
DX: O20.8 Other hemorrhage in early pregnancy (principal); Z3A.00 Weeks of gestation of pregnancy not specified
CPT/HCPCS: 76815

== ENCOUNTER → 2023-09-22 | Outpatient (CLI) | payer OTHER, SELFPAY | END | disposition home or self-care (01) | LOC: LABSPEC 17:11 | PROVIDERS: PCP Family Medicine; Referring Provider Obstetrics & Gynecology; Visit Provider Obstetrics & Gynecology | DX: O26.899 Other specified pregnancy related conditions, unspecified trimester (principal); N89.8 Other specified noninflammatory disorders of vagina; Z3A.00 Weeks of gestation of pregnancy not specified; O99.891 Other specified diseases and conditions complicating pregnancy | CPT/HCPCS: 87070; 87205 ==

== ENCOUNTER → 2023-11-03 | Outpatient (CLI) | payer OTHER, SELFPAY ==
[2023-11-03 10:31] LABS: Absolute Lymphocyte Count 1.37 X10^3/uL (0.83-4.51); Absolute Neutrophil Count 7.9 X10^3/uL (2.0-7.7); Basophil# 0.04 X10^3/uL; Basophil% 0.4 % (0-1); Eosinophil# 0.11 X10^3/uL; Eosinophils% 1.1 % (0-5); Hematocrit 35.9 % (37-47); Hemoglobin 11.8 g/dL (12.0-15.0); Lymphocyte # 1.37 X10^3/ul (0.83-4.51); Lymphocyte % 13.6 % (19-41); Mean Corp Hgb Conc 32.9 g/dL (32-36); Mean Corpuscular Hgb 27.6 pg (27.0-32.0); Mean Corpuscular Volume 84.1 fL (81-99); Mean Platelet Vol. 10.1 fl (6.2-12.0); Monocyte# 0.57 X10^3/uL; Monocyte% 5.7 % (0-10); NRBC Flagged by Analyzer 0 % (0-5); Neutrophil # 7.88 X10^3/uL (2.7-7.7); Neutrophil % 78.5 % (47-70); Platelet Count 170 K/mm3 (150-450); RBC Distribution Width CV 13.6 % (11.6-14.6); RBC Distribution Width SD 41.8 fl (35.1-43.9); Red Blood Count 4.27 M/mm3 (4.2-5.4)
[2023-11-03 10:45] LABS: Glucose Challenge Gest 1H 50g 86 mg/dL (70-140)
[2023-11-03 11:18] LABS: HIV - WCH Non-Reactive (Nonreactive); Syphilis Antibodies Non-reactive
== END | disposition home or self-care (01) ==
LOC: PAVLAB 10:02
PROVIDERS: PCP Family Medicine; Referring Provider Obstetrics & Gynecology; Visit Provider Obstetrics & Gynecology
DX: O09.91 Supervision of high risk pregnancy, unspecified, first trimester (principal); Z13.1 Encounter for screening for diabetes mellitus; Z3A.00 Weeks of gestation of pregnancy not specified
CPT/HCPCS: 36415; 82950; 85025; 86703; 86780

== ENCOUNTER → 2023-11-30 | Outpatient (CLI) | payer OTHER, SELFPAY ==
--- NOTE | 2023-11-30 14:11 | US_ITS ---
STUDY: SECOND AND THIRD TRIMESTER OBSTETRICAL ULTRASOUND - LIMITED REASON FOR EXAM: Female, 28 years old growth -- 32 Weeks LMP: April 20, 2023. PRIOR ULTRASOUND: Comparison is made with prior study August 17, 2023 TECHNIQUE: Transabdominal TECHNICAL QUALITY: Adequate. FINDINGS: There is a single intrauterine fetus. The fetus is in a cephalic presentation. There is demonstrated cardiac activity with a heart rate of 150 bpm. There is a normal amniotic fluid volume. The largest amniotic fluid pocket measures 4.5 cm. The amniotic fluid index (MOLINA) is 15.3 cm. The placenta is fundal and posterior in location. There are Grade 1 placental changes. BIOMETRY: BPD: 8.29 cm: 33 weeks, 2 days HC: 30 cm: 33 weeks, 1 days AC: 38 cm: 34 weeks, 0 days FL: 6.2 cm: 31 weeks, 6 days Age by LMP: 32 weeks, 0 days. ALEKSANDR by LMP: January 25, 2024. age by current US: 33 weeks, 0 days. ALEKSANDR by current US: January 18, 2024. Estimated weight: 2190 grams, +/- 328 grams, 82 percentile. US/OB Limited With Biometrics IMPRESSION: Single live intrauterine gestation with a mean gestational age of 33 weeks. Electronically Signed: Trevor Singh MD at 15:24 EDT ,
== END | disposition home or self-care (01) ==
PROVIDERS: PCP Family Medicine; Referring Provider Obstetrics & Gynecology; Visit Provider Obstetrics & Gynecology
DX: I15.2 Hypertension secondary to endocrine disorders (principal)
CPT/HCPCS: 76816

== ENCOUNTER → 2023-12-01 | Outpatient (CLI) | payer OTHER, SELFPAY | END | disposition home or self-care (01) | LOC: LABSPEC 11:36 | PROVIDERS: PCP Family Medicine; Referring Provider Advanced Practice Midwife; Visit Provider Advanced Practice Midwife | DX: O23.40 Unspecified infection of urinary tract in pregnancy, unspecified trimester (principal); Z3A.00 Weeks of gestation of pregnancy not specified | CPT/HCPCS: 87086; 87088 ==

== ENCOUNTER → 2023-12-07 | Outpatient (CLI) | payer OTHER, SELFPAY ==
--- NOTE | 2023-12-07 14:20 | US_ITS ---
INDICATION: wellbeing EXAMINATION: Ultrasound US Biophysical Profile W/O Nonst TECHNIQUE: Transabdominal pelvic ultrasound was performed. COMPARISON: Ultrasound 11/30/2023 LMP: Established due date 01/25/2024. FINDINGS: Single fetus identified in the uterus cephalic presentation. heart rate 158 bpm. Amniotic fluid index 13.4 cm. Largest fluid pocket 4.7 cm. Placenta is posterior/fundal. Not low lying. BIOPHYSICAL PROFILE (BPP): -- Breathin. -- Movement: 2. -- Tone: 2. --Fluid: 2. Total: 11/22. US/Biophysical Prof W/O Non Stres IMPRESSION: Biophysical profile score 8 out of 8. Electronically Signed: Shantelle Freed MD at 7:58 EDT ,
== END | disposition home or self-care (01) ==
PROVIDERS: PCP Family Medicine; Referring Provider Obstetrics & Gynecology; Visit Provider Obstetrics & Gynecology
DX: Z34.93 Encounter for supervision of normal pregnancy, unspecified, third trimester (principal)
CPT/HCPCS: 76819

== ENCOUNTER → 2023-12-15 | Outpatient (CLI) | payer OTHER, SELFPAY ==
[2023-12-15 11:29] LABS: Absolute Lymphocyte Count 1.52 X10^3/uL (0.83-4.51); Basophil# 0.02 X10^3/uL; Basophil% 0.2 % (0-1); Eosinophil# 0.08 X10^3/uL; Eosinophils% 0.8 % (0-5); Hematocrit 34.9 % (37-47); Hemoglobin 11.4 g/dL (12.0-15.0); Lymphocyte # 1.52 X10^3/ul (0.83-4.51); Lymphocyte % 14.8 % (19-41); Mean Corp Hgb Conc 32.7 g/dL (32-36); Mean Corpuscular Hgb 26.9 pg (27.0-32.0); Mean Corpuscular Volume 82.3 fL (81-99); Mean Platelet Vol. 10.3 fl (6.2-12.0); Monocyte# 0.56 X10^3/uL; Monocyte% 5.4 % (0-10); NRBC Flagged by Analyzer 0 % (0-5); Neutrophil # 8.04 X10^3/uL (2.7-7.7); Platelet Count 170 K/mm3 (150-450); RBC Distribution Width SD 41.1 fl (35.1-43.9); Red Blood Count 4.24 M/mm3 (4.2-5.4); White Blood Count 10.3 K/mm3 (4.4-11.0)
[2023-12-15 12:01] LABS: ALB/GLOB Ratio 0.6 RATIO (0.9-2.4); AST(SGOT) 17 U/L (15-37); Alanine Aminotransfer ALT/SGPT 19 U/L (13-56); Albumin, Serum 2.4 g/dL (3.2-5.0); Alkaline Phosphatase 104 U/L (45-117); Anion Gap 6 (5-15); BUN 7 mg/dL (7-18); BUN/Creat Ratio 11.1 RATIO (10-20); Chloride 109 mmol/L (98-107); Creatinine, Serum 0.63 mg/dL (0.55-1.02); EST Glomerular Filtration Rate 120 mL/min (>60); Est Glom Filt Rate - Afr Amer 145 mL/min (>60); Globulin 4.2 g/dL (2.2-4.2); Glucose 86 mg/dL (74-106); Potassium 3.7 mmol/L (3.5-5.1); Protein, Total 6.6 g/dL (6.4-8.2); Sodium Level 137 mmol/L (136-145)
[2023-12-15 12:38] LABS: Protein, Urine (Random) 32.7 mg/dL (<11.9); Protein:Creat Ratio 113 mg/g CRE (0-200)
== END | disposition home or self-care (01) ==
PROVIDERS: PCP Family Medicine; Referring Provider Advanced Practice Midwife; Visit Provider Advanced Practice Midwife
DX: I15.2 Hypertension secondary to endocrine disorders (principal)
CPT/HCPCS: 36415; 80053; 82570; 84156; 85025

== ENCOUNTER 2023-12-20 15:46 | Outpatient (CLI) | payer OTHER, SELFPAY ==
[2023-12-20] VITALS (13 sets, daily range): BP systolic 129; BP diastolic 72; PULSE 93–100; RESP 15; TEMP 36.7; O2SAT 97–100; BMI 41.9
--- NOTE | 2023-12-20 15:53 | US_ITS ---
STUDY: OBSTETRICAL ULTRASOUND - BIOPHYSICAL PROFILE REASON FOR EXAM: Female, 28 years old 33 Week LMP: PRIOR ULTRASOUND: None. TECHNIQUE: TECHNICAL QUALITY: Adequate. FINDINGS: There is a single intrauterine fetus. The fetus is in a cephalic presentation. There is demonstrated cardiac activity with a heart rate of 164 bpm. There is a normal amniotic fluid volume. The largest amniotic fluid pocket measures 8.8 x 5.4 cm. The amniotic fluid index (MOLINA) is 13.47 cm. The placenta is fundal There are Grade 1 placental changes. Age by LMP: 34 weeks, 6 days. ALEKSANDR by LMP: January 25, 2024. BIOPHYSICAL PROFILE: Breathing Movements (FBM): 0 Gross Body Movements (GBM): 2 Tone (FT): 2 Amniotic Fluid Volume (AFV): 2 TOTAL SCORE: US/Biophysical Prof W/O Non Stres IMPRESSION: Abnormal biophysical profile 09/22 Electronically Signed: Luis Hui MD at 17:38 EDT ,
--- NOTE | 2023-12-20 18:23 | OB.TRI.PN_ITS ---
Progress Notes Date of Service: 12/20/23 Progress Note: Patient presents for triage evaluation secondary to 09/22 bpp FHT: 140 Moderate variability reactive no decelerations category I tracing [place]: no regular Contractions Assessment and plan: 09/22 bpp now 11/24 34 weeks Reactive NST, reassuring maternal and status patient discharged to home to follow-up as scheduled. See problem list details for additional plan information. Charges/Coding Procedures Urinary/Genital [id number]: [id number] non-stress test Interp Assessment & Plan (1) HTN (hypertension): QUALIFIERS: Hypertension type: secondary to endocrine disorders Qualified Code(s): I15.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 weekly nsts and weekly bpps starting at 32 weekly, growth US q 4 weeks, delivery 38 weeks. (2) Genital herpes: QUALIFIERS: Herpes simplex infection site: vulvovaginitis Qualified Code(s): A60.04 - Herpesviral vulvovaginitis COMMENT: valtrex at 34-35 wk (3) Family history of gastroschisis: COMMENT: niece. Patient has custody of this child born August 2020 (4) : QUALIFIERS: Weeks of gestation: 34 weeks Qualified Code(s): Z3A.34 - 34 weeks gestation of COMMENT: declines genetic & carrier testing, normal anatomy scan. (5) Supervision of high-risk : QUALIFIERS: Trimester: first trimester Qualified Code(s): O09.91 - Supervision of high risk , unspecified, first trimester COMMENT: PRR , ALEKSANDR 01/25/24 boy Wallace (6) Obesity affecting : QUALIFIERS: Trimester: second trimester Obesity type affecting : unspecified obesity Qualified Code(s): O99.212 - Obesity complicating , second trimester COMMENT: HgbA1c ordered with NOB labs nl (7) UTI (urinary tract infection) during : (8) H/O biophysical profile: COMMENT: 09/22, so nst done and not 11/24 12/19
== END 2023-12-20 18:30 | disposition home or self-care (01) ==
LOC: US 15:49 → WPOUT 16:42 → WP 16:52
PROVIDERS: PCP Family Medicine; Referring Provider Obstetrics & Gynecology; Visit Provider Obstetrics & Gynecology
DX: O10.413 Pre-existing secondary hypertension complicating pregnancy, third trimester (principal); I15.2 Hypertension secondary to endocrine disorders; O98.313 Other infections with a predominantly sexual mode of transmission complicating pregnancy, third trimester; A60.04 Herpesviral vulvovaginitis; O99.213 Obesity complicating pregnancy, third trimester; O09.93 Supervision of high risk pregnancy, unspecified, third trimester; Z3A.34 34 weeks gestation of pregnancy
CPT/HCPCS: 59025; 59050; 76819; 99221; G0378

== ENCOUNTER → 2023-12-26 | Outpatient (CLI) | payer OTHER, SELFPAY ==
--- NOTE | 2023-12-26 14:51 | US_ITS ---
STUDY: OBSTETRICAL ULTRASOUND - BIOPHYSICAL PROFILE REASON FOR EXAM: Female, 28 years old 35 Week LMP: 04/20/2023 PRIOR ULTRASOUND: 12/20/2023 TECHNIQUE: Transabdominal TECHNICAL QUALITY: Adequate. FINDINGS: There is a single intrauterine fetus. The fetus is in a cephalic presentation. There is demonstrated cardiac activity with a heart rate of 155 bpm. There is a normal amniotic fluid volume. The largest amniotic fluid pocket measures 5.5 cm. The amniotic fluid index (MOLINA) is 15.8 cm. The placenta is fundal in location. There are Grade 1 placental changes. Age by LMP: 35 weeks, 5 days. ALEKSANDR by LMP: 01/25/2024. BIOPHYSICAL PROFILE: Breathing Movements (FBM): 2 Gross Body Movements (GBM): 2 Tone (FT): 2 Amniotic Fluid Volume (AFV): 2 TOTAL SCORE: US/Biophysical Prof W/O Non Stres IMPRESSION: Normal biophysical profile of 11/22. Electronically Signed: Zeke Li MD at 10:23 EDT ,
== END | disposition home or self-care (01) ==
PROVIDERS: PCP Family Medicine; Referring Provider Obstetrics & Gynecology; Visit Provider Obstetrics & Gynecology
DX: O10.413 Pre-existing secondary hypertension complicating pregnancy, third trimester (principal); I15.2 Hypertension secondary to endocrine disorders; Z3A.35 35 weeks gestation of pregnancy
CPT/HCPCS: 76819

== ENCOUNTER 2023-12-29 11:20 | Outpatient (CLI) | payer OTHER, SELFPAY ==
[2023-12-29 11:52] VITALS: BMI 41.5
--- NOTE | 2023-12-29 11:53 | US_ITS ---
STUDY: OBSTETRICAL ULTRASOUND - BIOPHYSICAL PROFILE REASON FOR EXAM: Female, 28 years old , evaluate well-being. LMP: 04/20/2023 PRIOR ULTRASOUND: 12/26/2023 TECHNIQUE: Transabdominal TECHNICAL QUALITY: Adequate. FINDINGS: There is a single intrauterine fetus. The fetus is in a cephalic presentation. There is demonstrated cardiac activity with a heart rate of 147 bpm. There is a normal amniotic fluid volume. The largest amniotic fluid pocket measures 4 cm. The amniotic fluid index (MOLINA) is 8.1 cm. The placenta is posterior and fundal in location and is not low lying. There are Grade 2 placental changes. Age by LMP: 36 weeks, 1 days. ALEKSANDR by LMP: January 25, 2024. BIOPHYSICAL PROFILE: Breathing Movements (FBM): 0 Gross Body Movements (GBM): 2 Tone (FT): 2 Amniotic Fluid Volume (AFV): 2 TOTAL SCORE: 8 / 8 US/Biophysical Prof W/O Non Stres IMPRESSION: Normal biophysical profile with score of 8/8. Electronically Signed: Kyrie Mckeon MD at 13:22 EDT ,
[2023-12-29 11:54] VITALS: RESP 16; TEMP 36.6
[2023-12-29 11:55] VITALS: BP 124/82; PULSE 88
--- NOTE | 2023-12-29 12:03 | OB.TRI.HP_ITS ---
HPI - General HPI Narrative TANVI ARGUETA, is a 28 F who presents at 36.1 with decreased FM in the office with non reactive NST. sent to for extended monitoring with BPP. Maternal Data Information ALEKSANDR Calculator Estimated Delivery Date Method Current WG Current Estimate 01/25/24 LMP (Certain) 36w 1d PFSH PFSH Medical History History of miscarriage Wears glasses Wears contact lenses Migraine headache Non-smoker Missed Anxiety Home Medications ?Medication ?Instructions ?Recorded ?Last Taken ?Type multivitamin no.47-iron fum 27 1 cap PO DAILY 06/13/23 12/29/23 History mg-folate no.1 1 mg-dha 300 mg capsule (PNV-DHA) valacyclovir 500 mg tablet 500 mg PO QDAY #30 tabs 12/22/23 12/28/23 Rx (Valtrex) Allergy/AdvReac Type Severity Reaction Status Date / Time Penicillins (PCN) Allergy Swelling Verified 12/29/23 11:51 Sulfa (Sulfonamide Allergy Hives Verified 12/29/23 11:51 Antibiotics) Family History Mother Hypertension Grandmother Hypertension Aunt Ovarian cancer Surgical History S/P dilation and curettage H/O dilation and curettage s/p left arm surgery Social History adopted: No household members: spouse, children and other details: custody of niece born 08/30/20 number of children: 1 current occupational status: employed 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[employer] pets and animals: Yes pets and animals: dog(s) history of recent travel: No sexually active: Yes Smoking Status: Never smoker alcohol intake: never substance use type: does not use well-balanced diet: daily or most days caffeine: No eating out: 1-3 times/week during the past year weight has: decreased > 10 lbs what type of physical activity do you participate in: running frequency: 3-4 times per week duration: 30-45 minutes/day juju/latter day: Gnosticist seatbelt use: always do you feel safe at home: Yes additional social history: - [place] History 2 Elective abortions Hx Para 0 Spontaneous abortions 1 Hx # Term Pregnancies Ectopic pregnancies Hx # Pregnancies Multiple births # of living children 0 Past Pregnancies Del. Date Name GA/Weeks Outcome Route Bth Weight Gen Labor Lgth Anesthesia Del [place] Provider FOB 12/16/20 spontaneous Zach Delivery Date: 12/16/20 Last Updated by: Idalmis Taylor D&C Visit Details Expected Delivery Route/Plan Labor Preferences- CB/BF classes: [] labor support person: [] labor intervention preferences: [] pain management options preferred: [] cut cord/dad catch: [] : [] PP control planned: [] discussed possible routes of delivery and associated risks: [] special requests: [] Plans Covid status: [] Flu vaccine: [] Tdap vaccine: obtained. Rhogam: [] LARC form signed: [] Problem list reviewed and updated with the most current plan of care details and appropriate orders placed. Relevant counseling for the gestational age provided. Continue routine care and follow up unless otherwise noted in visit notes/problem list details OB Flowsheet Initial Weight: 222 lb Date -?-?-?-?-?-?-?-?-?-?-?-?- EGA Weight BP Urine Prot -?-?-?-?-?-?-?-?-?-?-?-?- Glucose FHR FuHt Pres Dilation -?-?-?-?-?-?-?-?-?-?-?-?- Effaced St Visit Note 06/15/23 -?-?-?-?-?-?-?-?-?-?-?-?- 8w 0d 222 lb (+0 oz) 138/83 -?-?-?-?-?-?-?-?-?-?-?-?- 150 -?-?-?-?-?-?-?-?-?-?-?-?- KW- CRL cons wit h dates. Declines NIPT/carrier 07/13/23 -?-?-?-?-?-?-?-?-?-?-?-?- 12w 0d 224 lb 8 oz (+2 lb 8 oz) 124/82 Negative -?-?-?-?-?-?-?-?-?-?-?-?- Negative 150 -?-?-?-?-?-?-?-?-?-?-?-?- MH-No bleeding s sol 07/08. Was in ED that day and US indicates 5cm subchor hemorrhage. Live IUD on US. Will rpt US 2 wk 08/09/23 -?-?-?-?-?-?-?-?-?-?-?-?- 15w 6d 231 lb 8 oz (+9 lb 8 oz) 132/78 Negative -?-?-?-?-?-?-?-?-?-?-?-?- Negative 145 -?-?-?-?-?-?-?-?-?-?-?-?- KW- no vb/crampi ng. MFM 09/04. declines AFP screening 09/08/23 -?-?-?-?-?-?-?-?-?-?-?-?- 20w 1d 232 lb (+10 lb) 138/88 Negative -?-?-?-?-?-?-?-?-?-?-?-?- Negative 140 -?-?-?-?-?-?-?-?-?-?-?-?- LC- no vb/crampi ng. needs additional imaging for anatomy- scheduled for mid september. LC- no vb/cramping. needs ad ditional imaging for anatomy- scheduled for mid september. 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 09/22/23 -?-?-?-?-?-?-?-?-?-?-?-?- 22w 1d 238 lb 2 oz (+16 lb 2 oz) 129/84 Negative -?-?-?-?-?-?-?-?-?-?-?-?- Negative 140 0 -?-?-?-?-?-?-?-?-?-?-?-?- SM- co vb episod e today, had burning around clitoris and then had gush of blood, now stopped. vaginal exam negative with no blood seen cervix closed. reviewed precuations for labor and UTI/kidney stone symptoms. 10/06/23 -?-?-?-?-?-?-?-?-?-?-?-?- 24w 1d 236 lb (+14 lb) 133/83 Negative -?-?-?-?-?-?-?-?-?-?-?-?- Negative 135 -?-?-?-?-?-?-?-?-?-?-?-?- JV- no lof, vagi nal bleeding, or dec fm. no complaints today. gct drink with instructions given. 11/03/23 -?-?-?-?-?-?-?-?-?-?-?-?- 28w 1d 242 lb (+20 lb) 131/85 -?-?-?-?-?-?-?-?-?-?-?-?- 138 28 -?-?-?-?-?-?-?-?-?-?-?-?- LC- no vb/ctx/lo f. good fm. passed glucose. no concerns. 11/17/23 -?-?-?-?-?-?-?-?-?-?-?-?- 30w 1d 244 lb 2 oz (+22 lb 2 oz) 123/80 Negative -?-?-?-?-?-?-?-?-?-?-?-?- Negative 140 30 -?-?-?-?-?-?-?-?-?-?-?-?- SM- no vb lof go od fm no regular ctx discussed chtn management 12/01/23 -?-?-?-?-?-?-?-?-?-?-?-?- 32w 1d 247 lb 2 oz (+25 lb 2 oz) 128/83 128/83 -?-?-?-?-?-?-?-?-?-?-?-?- 135 32 -?-?-?-?-?-?-?-?-?-?-?-?- KW- no vb/lof. g ood fm. having UTI sx with cramping, frequency and burning. Rx and culture sent. KW- no vb/lof. good fm. aric ng UTI sx with cramping, frequency and burning. Rx and culture sent. LARC today 12/08/23 -?-?-?-?-?-?-?-?-?-?--?-?- 33w 1d 249 lb 2 oz (+27 lb 2 oz) 127/79 Negative -?-?-?-?-?-?-?-?-?-?-?-?- Negative 135 -?-?-?-?-?-?-?-?-?-?-?-?- KW- NST only. re active. Had BPP yesterday 11/22. instructed to change either BPP date or NST date so they are not 1 day apart. 12/15/23 -?-?-?-?-?-?-?-?-?-?-?-?- 34w 1d 248 lb 2 oz (+26 lb 2 oz) 133/87 Cancelled -?-?-?-?-?-?-?-?-?-?-?-?- Cancelled 135 34 -?-?-?-?-?-?-?-?-?-?-?-?- KW- no vb/lof/ct x. good fm. NST reactive. complaints of mild headache for the last couple days. Pre e labs today. start daily BPs at home. 12/22/23 -?-?-?-?-?-?-?-?-?-?-?-?- 35w 1d 249 lb (+27 lb) 126/79 Negative -?-?-?-?-?-?-?-?-?-?-?-?- Negative 150 -?-?-?-?-?-?-?-?-?-?-?-?- SM- no vb lof go od fm no regular ctx 12/29/23 -?-?-?-?-?-?-?-?-?-?-?-?- 36w 1d 251 lb 8 oz (+29 lb 8 oz) 129/87 Negative -?-?-?-?-?-?-?-?-?-?-?-?- Negative 145 0 -?-?-?-?-?-?-?-?-?-?-?-?- kw- NST not reac tive. decreased FM. GBS done NST FHR Rate Baby A Baseline: 125 Variability:: Moderate Accelerations:: 15 x 15 Decelerations:: None NST Reactive:: Yes FHR Category:: Category I Assessment & Plan (1) Decreased movement: COMMENT: s/p 1L LR, BPP PLAN: Patient presents for triage evaluation secondary to decreased FM in office today. s/p 1L LR bolus and BPP. FHT: Moderate variability reactive no decelerations category I tracing [place]: no Contractions Assessment and plan: Reactive NST, reassuring maternal and status patient discharged to home to follow-up in office. See problem list details for additional plan information. Charges/Coding Procedures Urinary/Genital 52xxx-59xxx: 25621-13 non-stress test Interp Multi Select Codes Urinary/Genital Urinary/Genital CPT Codes: 34220-65 non-stress test Interp
--- NOTE | 2023-12-29 12:03 | OB.TRI.NOTE ---
HPI - General HPI Narrative TANVI ARGUETA, is a 28 F who presents at 36.1 with decreased FM in the office with non reactive NST. sent to for extended monitoring with BPP. Maternal Data Information ALEKSANDR Calculator Estimated Delivery Date Method Current WG Current Estimate 01/25/24 LMP (Certain) 36w 1d PFSH PFSH Medical History History of miscarriage Wears glasses Wears contact lenses Migraine headache Non-smoker Missed Anxiety Home Medications ?Medication ?Instructions ?Recorded ?Last Taken ?Type multivitamin no.47-iron fum 27 1 cap PO DAILY 06/13/23 12/29/23 History mg-folate no.1 1 mg-dha 300 mg capsule (PNV-DHA) valacyclovir 500 mg tablet 500 mg PO QDAY #30 tabs 12/22/23 12/28/23 Rx (Valtrex) Allergy/AdvReac Type Severity Reaction Status Date / Time Penicillins (PCN) Allergy Swelling Verified 12/29/23 11:51 Sulfa (Sulfonamide Allergy Hives Verified 12/29/23 11:51 Antibiotics) Family History Mother Hypertension Grandmother Hypertension Aunt Ovarian cancer Surgical History S/P dilation and curettage H/O dilation and curettage s/p left arm surgery Social History adopted: No household members: spouse, children and other details: custody of niece born 08/30/20 number of children: 1 current occupational status: employed 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[employer] pets and animals: Yes pets and animals: dog(s) history of recent travel: No sexually active: Yes Smoking Status: Never smoker alcohol intake: never substance use type: does not use well-balanced diet: daily or most days caffeine: No eating out: 1-3 times/week during the past year weight has: decreased > 10 lbs what type of physical activity do you participate in: running frequency: 3-4 times per week duration: 30-45 minutes/day juju/anabaptism: Anabaptism seatbelt use: always do you feel safe at home: Yes additional social history: - [place] History 2 Elective abortions Hx Para 0 Spontaneous abortions 1 Hx # Term Pregnancies Ectopic pregnancies Hx # Pregnancies Multiple births # of living children 0 Past Pregnancies Del. Date Name GA/Weeks Outcome Route Bth Weight Gen Labor Lgth Anesthesia J[place] Provider FOB 12/16/20 spontaneous Zach Delivery Date: 12/16/20 Last Updated by: Idalmis Taylor D&Letha Visit Details Expected Delivery Route/Plan Labor Preferences- CB/BF classes: [] labor support person: [] labor intervention preferences: [] pain management options preferred: [] cut cord/dad catch: [] : [] PP control planned: [] discussed possible routes of delivery and associated risks: [] special requests: [] Plans Covid status: [] Flu vaccine: [] Tdap vaccine: obtained. Rhogam: [] LARC form signed: [] Problem list reviewed and updated with the most current plan of care details and appropriate orders placed. Relevant counseling for the gestational age provided. Continue routine care and follow up unless otherwise noted in visit notes/problem list details OB Flowsheet Initial Weight: 222 lb Date <del>?</del> EGA Weight BP Urine Prot <del>?</del> Glucose FHR FuHt Pres Dilation <del>?</del> Effaced St Visit Note 06/15/23 <del>?</del> 8w 0d 222 lb (+0 oz) 138/83 <del>?</del> 150 <del>?</del> KW- CRL cons with dates. Declines NIPT/carrier 07/13/23 <del>?</del> 12w 0d 224 lb 8 oz (+2 lb 8 oz) 124/82 Negative <del>?</del> Negative 150 <del>?</del> MH-No bleeding since 07/08. Was in ED that day and US indicates 5cm subchor hemorrhage. Live IUD on US. Will rpt US 2 wk 08/09/23 <del>?</del> 15w 6d 231 lb 8 oz (+9 lb 8 oz) 132/78 Negative <del>?</del> Negative 145 <del>?</del> KW- no vb/cramping. MFM US 09/04. declines AFP screening 09/08/23 <del>?</del> 20w 1d 232 lb (+10 lb) 138/88 Negative <del>?</del> Negative 140 <del>?</del> LC- no vb/cramping. needs additional imaging for anatomy- scheduled for mid september. LC- no vb/cramping. needs additional imaging for anatomy- scheduled for mid september. 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 09/22/23 <del>?</del> 22w 1d 238 lb 2 oz (+16 lb 2 oz) 129/84 Negative <del>?</del> Negative 140 0 <del>?</del> SM- co vb episode today, had burning around clitoris and then had gush of blood, now stopped. vaginal exam negative with no blood seen cervix closed. reviewed precuations for labor and UTI/kidney stone symptoms. 10/06/23 <del>?</del> 24w 1d 236 lb (+14 lb) 133/83 Negative <del>?</del> Negative 135 <del>?</del> JV- no lof, vaginal bleeding, or dec fm. no complaints today. gct drink with instructions given. 11/03/23 <del>?</del> 28w 1d 242 lb (+20 lb) 131/85 <del>?</del> 138 28 <del>?</del> LC- no vb/ctx/lof. good fm. passed glucose. no concerns. 11/17/23 <del>?</del> 30w 1d 244 lb 2 oz (+22 lb 2 oz) 123/80 Negative <del>?</del> Negative 140 30 <del>?</del> SM- no vb lof good fm no regular ctx discussed chtn management 12/01/23 <del>?</del> 32w 1d 247 lb 2 oz (+25 lb 2 oz) 128/83 128/83 <del>?</del> 135 32 <del>?</del> KW- no vb/lof. good fm. having UTI sx with cramping, frequency and burning. Rx and culture sent. KW- no vb/lof. good fm. having UTI sx with cramping, frequency and burning. Rx and culture sent. LARC today 12/08/23 <del>?</del> 33w 1d 249 lb 2 oz (+27 lb 2 oz) 127/79 Negative <del>?</del> Negative 135 <del>?</del> KW- NST only. reactive. Had BPP yesterday 11/22. instructed to change either BPP date or NST date so they are not 1 day apart. 12/15/23 <del>?</del> 34w 1d 248 lb 2 oz (+26 lb 2 oz) 133/87 Cancelled <del>?</del> Cancelled 135 34 <del>?</del> KW- no vb/lof/ctx. good fm. NST reactive. complaints of mild headache for the last couple days. Pre e labs today. start daily BPs at home. 12/22/23 <del>?</del> 35w 1d 249 lb (+27 lb) 126/79 Negative <del>?</del> Negative 150 <del>?</del> SM- no vb lof good fm no regular ctx 12/29/23 <del>?</del> 36w 1d 251 lb 8 oz (+29 lb 8 oz) 129/87 Negative <del>?</del> Negative 145 0 <del>?</del> kw- NST not reactive. decreased FM. GBS done NST FHR Rate Baby A Baseline: 125 Variability:: Moderate Accelerations:: 15 x 15 Decelerations:: None NST Reactive:: Yes FHR Category:: Category I Assessment & Plan (1) Decreased movement: COMMENT: s/p 1L LR, BPP PLAN: Patient presents for triage evaluation secondary to decreased FM in office today. s/p 1L LR bolus and BPP. FHT: Moderate variability reactive no decelerations category I tracing [place]: no Contractions Assessment and plan: Reactive NST, reassuring maternal and status patient discharged to home to follow-up in office. See problem list details for additional plan information. Charges/Coding Procedures Urinary/Genital 52xxx-59xxx: 42290-38 non-stress test Interp Multi Select Codes Urinary/Genital Urinary/Genital CPT Codes: 96996-36 non-stress test Interp
== END 2023-12-29 13:00 | disposition home or self-care (01) ==
LOC: WPOUT 11:29 → WP 11:30
PROVIDERS: PCP Family Medicine; Referring Provider Registered Nurse; Visit Provider Registered Nurse
DX: O36.8130 Decreased fetal movements, third trimester, not applicable or unspecified (principal); Z3A.36 36 weeks gestation of pregnancy
CPT/HCPCS: 59025; 59050; 76819; 87081; 99221; G0378

== ENCOUNTER → 2024-01-01 | Outpatient (CLI) | payer OTHER, SELFPAY ==
--- NOTE | 2024-01-01 09:45 | US_ITS ---
STUDY: OBSTETRICAL ULTRASOUND - BIOPHYSICAL PROFILE REASON FOR EXAM: Female, 28 years old last exam no breathing -- DECREASED MOVEMENT LMP: April 20, 2023. PRIOR ULTRASOUND: Comparison is made with prior study dated December 29, 2023. TECHNIQUE: Transabdominal TECHNICAL QUALITY: Adequate. FINDINGS: There is a single intrauterine fetus. The fetus is in a cephalic presentation. There is demonstrated cardiac activity with a heart rate of 162 bpm. There is a normal amniotic fluid volume. The largest amniotic fluid pocket measures 4.8 cm x 2 cm. The amniotic fluid index (MOLINA) is 12.9 cm. The placenta is posterior in location and is not low lying. There are Grade 2 placental changes. Age by LMP: 36 weeks, 4 days. ALEKSANDR by LMP: January 25, 2024. BIOPHYSICAL PROFILE: Breathing Movements (FBM): 2 Gross Body Movements (GBM): 2 Tone (FT): 2 Amniotic Fluid Volume (AFV): 2 TOTAL SCORE: 8 / 8 US/Biophysical Prof W/O Non Stres IMPRESSION: Normal biophysical profile of 8/8. Incidental note is made of small bilateral hydroceles. Electronically Signed: Trevor Singh MD at 11:10 EDT ,
== END | disposition home or self-care (01) ==
LOC: US 09:45
PROVIDERS: PCP Family Medicine; Referring Provider Obstetrics & Gynecology; Visit Provider Obstetrics & Gynecology
DX: O41.90X0 Disorder of amniotic fluid and membranes, unspecified, unspecified trimester, not applicable or unspecified (principal); O36.8190 Decreased fetal movements, unspecified trimester, not applicable or unspecified; O09.91 Supervision of high risk pregnancy, unspecified, first trimester; Z3A.00 Weeks of gestation of pregnancy not specified
CPT/HCPCS: 76819

== ENCOUNTER → 2024-01-02 | Outpatient (CLI) | payer OTHER, SELFPAY ==
--- NOTE | 2024-01-02 14:18 | US_ITS ---
STUDY: SECOND AND THIRD TRIMESTER OBSTETRICAL ULTRASOUND REASON FOR EXAM: Female, 28 years old GROWTH LMP: TECHNIQUE: Transabdominal TECHNICAL QUALITY: Adequate. PRIOR ULTRASOUND: 12/29/2023, 01/01/2024. FINDINGS: There is a single intrauterine fetus. The fetus is in a cephalic presentation. There is demonstrated cardiac activity with a heart rate of 138 bpm. There is a normal amniotic fluid volume. The largest amniotic fluid pocket measures 6.6 cm. The amniotic fluid index (MOLINA) is 18.2 cm. The placenta is posterior in location and is not low lying. There are Grade 1 placental changes. The cervix is not visualized. The adnexal regions are not visualized. BIOMETRY: BPD: 9.4: 38 weeks, 1 days HC: 33.5: 38 weeks, 2 days AC: 33.9: 37 weeks, 6 days FL: 7.2: 36 weeks, 5 days CI: FL/BPD: FL/HC: FL/AC: HC/AC: age by current US: 37 weeks, 5 days. ALEKSANDR by current US: 01/18/2024. Estimated weight: 3287 grams, +/- 493 grams, 79 %. age by prior US: weeks, days. ALEKSANDR by prior US: . Age by LMP: 36 weeks, 5 days. ALEKSANDR by LMP: 01/25/2024. US/OB Limited With Biometrics IMPRESSION: Single live fetus in a vertex presentation. survey not performed on this exam. Placenta is grade 1 and is not low-lying. Cervix is not adequately visualized. age by current US: 37 weeks, 5 days. ALEKSANDR by current US: 01/18/2024. Estimated weight: 3287 grams, +/- 493 grams, 79 %. Electronically Signed: Pancho Duarte MD at 16:22 EDT Reading Location ID and State: [facility] / [place] , Service support ,
== END | disposition home or self-care (01) ==
PROVIDERS: PCP Family Medicine; Referring Provider Obstetrics & Gynecology; Visit Provider Obstetrics & Gynecology
DX: Z34.93 Encounter for supervision of normal pregnancy, unspecified, third trimester (principal)
CPT/HCPCS: 76816

== ENCOUNTER → 2024-01-09 | Outpatient (CLI) | payer OTHER, SELFPAY ==
--- NOTE | 2024-01-09 14:19 | US_ITS ---
STUDY: OBSTETRICAL ULTRASOUND - BIOPHYSICAL PROFILE REASON FOR EXAM: Female, 28 years old WELL BEING LMP: PRIOR ULTRASOUND: None. TECHNIQUE: Transabdominal TECHNICAL QUALITY: Adequate. FINDINGS: There is a single intrauterine fetus. The fetus is in a cephalic presentation. There is demonstrated cardiac activity with a heart rate of 126 bpm. There is a normal amniotic fluid volume. The largest amniotic fluid pocket measures 5.4 cm. The amniotic fluid index (MOLINA) is 20 cm. The placenta is posterior and fundal There are Grade 1 placental changes. Age by current ultrasound: 37 weeks, 4 days. ALEKSANDR by LMP: January 25, 2024. age by prior US: 38 weeks, 6 days. ALEKSANDR by prior US: January 18, 2024. BIOPHYSICAL PROFILE: Breathing Movements (FBM): 2 Gross Body Movements (GBM): 2 Tone (FT): 2 Amniotic Fluid Volume (AFV): 2 TOTAL SCORE: US/Biophysical Prof W/O Non Stres IMPRESSION: Normal biophysical profile of 11/22. Electronically Signed: Luis Hui MD at 19:50 EDT ,
== END | disposition home or self-care (01) ==
PROVIDERS: PCP Family Medicine; Referring Provider Obstetrics & Gynecology; Visit Provider Obstetrics & Gynecology
DX: O10.413 Pre-existing secondary hypertension complicating pregnancy, third trimester (principal); I15.2 Hypertension secondary to endocrine disorders; Z3A.37 37 weeks gestation of pregnancy
CPT/HCPCS: 76819

== ENCOUNTER 2024-01-11 19:26 | Inpatient (IN) | payer OTHER, SELFPAY ==
[2024-01-11 19:31] VITALS: BMI 42.1
[2024-01-11] MEDS: Lactated Ringers 1,000 ML 50 ML IV (19:50)
[2024-01-11 20:04] LABS: Absolute Lymphocyte Count 1.81 X10^3/uL (0.83-4.51); Absolute Neutrophil Count 7.2 X10^3/uL (2.0-7.7); Basophil# 0.03 X10^3/uL; Basophil% 0.3 % (0-1); Eosinophil# 0.08 X10^3/uL; Eosinophils% 0.8 % (0-5); Hematocrit 36.3 % (37-47); Hemoglobin 11.9 g/dL (12.0-15.0); Lymphocyte # 1.81 X10^3/ul (0.83-4.51); Lymphocyte % 18.5 % (19-41); Mean Corp Hgb Conc 32.8 g/dL (32-36); Mean Corpuscular Hgb 26.7 pg (27.0-32.0); Mean Corpuscular Volume 81.6 fL (81-99); Monocyte# 0.55 X10^3/uL; Monocyte% 5.6 % (0-10); NRBC Flagged by Analyzer 0 % (0-5); Neutrophil # 7.24 X10^3/uL (2.7-7.7); Neutrophil % 74.2 % (47-70); Platelet Count 162 K/mm3 (150-450); RBC Distribution Width CV 13.7 % (11.6-14.6); RBC Distribution Width SD 40.1 fl (35.1-43.9); Red Blood Count 4.45 M/mm3 (4.2-5.4); White Blood Count 9.8 K/mm3 (4.4-11.0)
[2024-01-11 20:18] VITALS: RESP 17; TEMP 37.3
[2024-01-11 20:20] VITALS: PULSE 97; O2SAT 98
[2024-01-11 20:21] VITALS: BP 136/82; PULSE 98
[2024-01-11 20:37] LABS: Syphilis Antibodies Non-reactive
[2024-01-11] MEDS: miSOPROStol 25 MCG TABLET VAGINAL (20:46)
[2024-01-11 21:10] LABS: ALB/GLOB Ratio 0.6 RATIO (0.9-2.4); AST(SGOT) 20 U/L (15-37); Alanine Aminotransfer ALT/SGPT 20 U/L (13-56); Albumin, Serum 2.6 g/dL (3.2-5.0); Alkaline Phosphatase 116 U/L (45-117); Anion Gap 7 (5-15); BUN 9 mg/dL (7-18); BUN/Creat Ratio 13.2 RATIO (10-20); Chloride 107 mmol/L (98-107); Creatinine, Serum 0.68 mg/dL (0.55-1.02); EST Glomerular Filtration Rate 109 mL/min (>60); Est Glom Filt Rate - Afr Amer 131 mL/min (>60); Estimated Creatinine Clearance 155.87 ml/min; Globulin 4.2 g/dL (2.2-4.2); Glucose 90 mg/dL (74-106); Potassium 3.8 mmol/L (3.5-5.1); Protein, Total 6.8 g/dL (6.4-8.2); Sodium Level 137 mmol/L (136-145)
[2024-01-11] MEDS: LACTATED RINGERS 500 ML 999 ML IV (22:27)
[2024-01-12] VITALS (69 sets, daily range): BP systolic 105–154; BP diastolic 52–93; PULSE 66–97; RESP 16–18; TEMP 36.1–37.1; O2SAT 97–100
[2024-01-12] MEDS: Oxytocin 15 Units/NS 250ml 15 UNITS/250 ML IV.SOLN 2 UNITS IV (01:40)
[2024-01-12] MEDS: Acetaminophen 500 MG Tablet PO (04:10)
[2024-01-12] MEDS: 0.9% Normal Saline Single 100 ML IV.SOLN. INTRA-UTER (07:50)
--- NOTE | 2024-01-12 08:10 | HP.PCM.OB_ITS ---
HPI - General General Date of Admission: 01/11/24 HPI Narrative TANVI ARGUETA, is a 28 y/o @ 38 weeks who presents to L&D for induction of labor for chronic hypertension. She arrived last night for cytotec. After 4 hours the tracing showed late decelerations. She was given a fluid bolus and we waited an hour of having a category 1 strip and pitocin was started. She is currently comfortable and consents to a mendoza balloon placement Maternal Data Information ALEKSANDR Calculator Estimated Delivery Date Method Current WG Current Estimate 01/25/24 LMP (Certain) 38w 1d [facility] Medical History (Updated 01/11/24 @ 20:05 by Tamara Coreas) Chronic hypertension History of miscarriage Wears glasses Wears contact lenses Migraine headache Non-smoker Missed Anxiety Home Medications ?Medication ?Instructions ?Recorded ?Last Taken ?Type multivitamin no.47-iron fum 27 1 cap PO DAILY 06/13/23 01/11/24 07:00 History mg-folate no.1 1 mg-dha 300 mg capsule (PNV-DHA) valacyclovir 500 mg tablet 500 mg PO QDAY HSV #30 tabs 12/22/23 01/11/24 07:00 Rx (Valtrex) Allergy/AdvReac Type Severity Reaction Status Date / Time Penicillins (PCN) Allergy Swelling Verified 01/11/24 19:47 Sulfa (Sulfonamide Allergy Hives Verified 01/11/24 19:47 Antibiotics) Family History Mother Hypertension Grandmother Hypertension Aunt Ovarian cancer Surgical History S/P dilation and curettage H/O dilation and curettage s/p left arm surgery Social History adopted: No household members: spouse, children and other details: custody of niece born 08/30/20 number of children: 1 current occupational status: employed 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[employer] pets and animals: Yes pets and animals: dog(s) history of recent travel: No sexually active: Yes Smoking Status: Never smoker alcohol intake: never substance use type: does not use well-balanced diet: daily or most days caffeine: No eating out: 1-3 times/week during the past year weight has: decreased > 10 lbs what type of physical activity do you participate in: running frequency: 3-4 times per week duration: 30-45 minutes/day juju/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 Date Name GA/Weeks Outcome Route Bth Weight Gen Labor Lgth Anesthesia Del Locatn Provider FOB 12/16/20 spontaneous Zach Delivery Date: 12/16/20 Last Updated by: Idalmis Taylor D&Letha Visit Details Expected Delivery Route/Plan Labor Preferences- CB/BF classes: [] labor support person: labor intervention preferences:none pain management options preferred:plan epidural cut cord/dad catch: [] : [] PP control planned: [] discussed possible routes of delivery and associated risks: [] special requests: [] Plans Covid status: [] Flu vaccine: [] Tdap vaccine: obtained. Rhogam: na LARC form signed: eclined movement and labor precautions reviewed. Problem list reviewed and updated with the most current plan of care details and appropriate orders placed. Relevant counseling for the gestational age provided. Continue routine care and follow up unless otherwise noted in visit notes/problem list details OB Flowsheet Initial Weight: 222 lb Date -?-?-?-?-?-?-?-?-?-?-?-?- EGA Weight BP Urine Prot -?-?-?-?-?-?-?-?-?-?-?--?- Glucose FHR FuHt Pres Dilation -?-?-?-?-?-?-?-?-?-?-?-?- Effaced St Visit Note 06/15/23 -?-?-?-?-?-?-?-?-?-?-?-?- 8w 0d 222 lb (+0 oz) 138/83 -?-?-?-?-?-?-?-?-?-?-?-?- 150 -?-?-?-?-?-?-?-?-?-?-?-?- KW- CRL cons wit h dates. Declines NIPT/carrier 07/13/23 -?-?-?-?-?-?-?-?-?-?-?-?- 12w 0d 224 lb 8 oz (+2 lb 8 oz) 124/82 Negative -?-?-?-?-?-?-?-?-?-?-?-?- Negative 150 -?-?-?-?-?-?-?-?-?-?--?-?- MH-No bleeding s sol 07/08. Was in ED that day and US indicates 5cm subchor hemorrhage. Live IUD on US. Will rpt US 2 wk 08/09/23 -?-?-?-?-?-?-?-?-?-?-?-?- 15w 6d 231 lb 8 oz (+9 lb 8 oz) 132/78 Negative -?-?-?-?-?-?-?-?-?-?-?-?- Negative 145 -?-?-?-?-?-?-?-?-?-?-?-?- KW- no vb/crampi ng. MFM US 09/04. declines AFP screening 09/08/23 -?-?-?-?-?-?-?-?-?-?-?-?- 20w 1d 232 lb (+10 lb) 138/88 Negative -?-?-?-?-?-?-?-?-?-?-?--?- Negative 140 -?-?-?-?-?-?-?-?-?-?-?-?- LC- no vb/crampi ng. needs additional imaging for anatomy- scheduled for mid september. LC- no vb/cramping. needs ad ditional imaging for anatomy- scheduled for mid september. 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 09/22/23 -?-?-?-?-?-?-?-?-?-?-?-?- 22w 1d 238 lb 2 oz (+16 lb 2 oz) 129/84 Negative -?-?-?-?-?-?-?-?-?-?-?-?- Negative 140 0 -?-?-?-?-?-?-?-?-?-?-?-?- SM- co vb episod e today, had burning around clitoris and then had gush of blood, now stopped. vaginal exam negative with no blood seen cervix closed. reviewed precuations for labor and UTI/kidney stone symptoms. 10/06/23 -?-?-?-?-?-?-?-?-?-?-?-?- 24w 1d 236 lb (+14 lb) 133/83 Negative -?-?-?-?-?-?-?-?-?-?-?-?- Negative 135 -?-?-?-?-?-?-?-?-?-?-?-?- JV- no lof, vagi nal bleeding, or dec fm. no complaints today. gct drink with instructions given. 11/03/23 -?-?-?-?-?-?-?-?-?-?-?-?- 28w 1d 242 lb (+20 lb) 131/85 -?-?-?-?-?-?-?-?-?-?-?-?- 138 28 -?-?-?-?-?-?-?-?-?-?-?-?- LC- no vb/ctx/lo f. good fm. passed glucose. no concerns. 11/17/23 -?-?-?-?-?-?-?-?-?-?-?-?- 30w 1d 244 lb 2 oz (+22 lb 2 oz) 123/80 Negative -?-?-?-?-?-?-?-?-?-?-?-?- Negative 140 30 -?-?-?-?-?-?-?-?-?-?-?-?- SM- no vb lof go od fm no regular ctx discussed chtn management 12/01/23 -?-?-?-?-?-?-?-?-?-?-?-?- 32w 1d 247 lb 2 oz (+25 lb 2 oz) 128/83 128/83 -?-?-?-?-?-?-?-?-?-?-?-?- 135 32 -?-?-?-?-?-?-?-?-?-?-?-?- KW- no vb/lof. g ood fm. having UTI sx with cramping, frequency and burning. Rx and culture sent. KW- no vb/lof. good fm. havi ng UTI sx with cramping, frequency and burning. Rx and culture sent. [facility] today 12/08/23 -?-?-?-?-?-?-?-?-?-?-?-?- 33w 1d 249 lb 2 oz (+27 lb 2 oz) 127/79 Negative -?-?-?-?-?-?-?-?-?-?-?-?- Negative 135 -?-?-?-?-?-?-?-?-?-?-?-?- KW- NST only. re active. Had BPP yesterday 11/22. instructed to change either BPP date or NST date so they are not 1 day apart. 12/15/23 -?-?-?-?-?-?-?-?-?-?-?-?- 34w 1d 248 lb 2 oz (+26 lb 2 oz) 133/87 Cancelled -?-?-?-?-?-?-?-?-?-?-?-?- Cancelled 135 34 -?-?-?-?-?-?-?-?-?-?-?-?- KW- no vb/lof/ct x. good fm. NST reactive. complaints of mild headache for the last couple days. Pre e labs today. start daily BPs at home. 12/22/23 -?-?-?-?-?-?-?-?-?-?-?-?- 35w 1d 249 lb (+27 lb) 126/79 Negative -?-?-?-?-?-?-?-?-?-?-?-?- Negative 150 -?-?-?-?-?-?-?-?-?-?-?-?- SM- no vb lof go od fm no regular ctx 12/29/23 -?-?-?-?-?-?-?-?-?-?-?-?- 36w 1d 251 lb 8 oz (+29 lb 8 oz) 129/87 Negative -?-?-?-?-?-?-?-?-?-?-?-?- Negative 145 0 -?-?-?-?-?-?-?-?-?-?-?-?- kw- NST not reac tive. decreased FM. GBS done 01/05/24 -?-?-?-?-?-?-?-?-?-?-?-?- 37w 1d 250 lb (+28 lb) 129/84 Negative -?-?-?-?-?-?-?-?-?-?-?-?- Negative 130 37 -?-?-?-?-?-?-?-?-?-?-?-?- SM- no vb lof go od fm no regular ctx 01/09/24 -?-?-?-?-?-?-?-?-?-?-?-?- 37w 5d 252 lb (+30 lb) 131/83 Negative -?-?-?-?-?-?-?-?-?-?-?-?- Negative 140 -?-?-?-?-?-?-?-?-?-?-?-?- MH NST only reac tive. ROS Constitutional Constitutional: Denies change in weight, fatigue, fever(s), headache(s), poor appetite or weakness Eyes Eyes: Denies blurry vision, change in vision, seeing flashes or spots in vision ENT HEENT: Denies dizziness, headache(s), loss taste/smell or sore throat Cardiovascular Cardiovascular: Denies chest pain, dizziness, dyspnea, irregular heart rhythm, leg edema, palpitations, rapid heart rate or vomiting Respiratory/Chest Respiratory/Chest: Denies chest tightness, cough, dyspnea or breast pain Gastrointestinal Gastrointestinal: Denies abdominal pain, anorexia, constipation, cramping, diarrhea, hemorrhoids, vomiting or weight changes Genitourinary Genitourinary: Denies dysuria, flank pain, genital lesions, genital pain, ur inary frequency or urinary urgency Musculoskeletal Musculoskeletal: Denies back pain, difficulty walking, joint pain, limited range of motion, muscle cramps or numbness Integumentary Integumentary: Denies lesions or unusual bruising Neurologic Neurologic: Denies abnormal movements, abnormal speech, dizziness, numbness, seizure-like activity or syncope Psychiatric Psychiatric: Denies anxiety, behavioral changes, change in appetite, change in libido, cognitive impairment, confusion, depression, difficulty concentrating, hallucinations or suicidal thoughts Endocrine Endocrinology: Denies excessive sweating, polydipsia or polyuria Hematologic/Lymphatic Hematologic/Lymphatic: Denies easy bleeding, easy bruising or lymphadenopathy Allergic/Immunologic Allergic/Immunologic: Denies itchy eyes, lip swelling, seasonal rhinorrhea, rhinitis, throat swelling, tongue swelling, eczemia, wheezing or asthma Vital Signs Vital Signs Vital Signs: 01/11/24 20:18 01/11/24 20:18 01/11/24 20:18 Temperature 99.2 F H Temperature Source Temporal Pulse Rate Respiratory Rate 17 Blood Pressure BP Systolic BP Diastolic Pulse Ox 01/11/24 20:20 01/11/24 20:20 01/11/24 20:21 Temperature Temperature Source Pulse Rate 97 Respiratory Rate Blood Pressure 136/82 H BP Systolic 136 BP Diastolic 82 Pulse Ox 98 01/11/24 20:21 01/12/24 00:01 01/12/24 00:01 Temperature Temperature Source Pulse Rate 98 94 Respiratory Rate Blood Pressure 147/89 H BP Systolic 147 BP Diastolic 89 Pulse Ox 01/12/24 00:01 01/12/24 00:01 01/12/24 00:01 Temperature 97.7 F L Temperature Source Temporal Pulse Rate Respiratory Rate 17 Blood Pressure BP Systolic BP Diastolic Pulse Ox 01/12/24 01:35 01/12/24 01:35 01/12/24 01:35 Temperature Temperature Source Temporal Pulse Rate 86 Respiratory Rate Blood Pressure 139/93 H BP Systolic 139 BP Diastolic 93 Pulse Ox 01/12/24 01:35 01/12/24 01:35 01/12/24 01:35 Temperature 97.2 F L Temperature Source Pulse Rate Respiratory Rate 16 Blood Pressure BP Systolic BP Diastolic Pulse Ox 97 01/12/24 02:53 01/12/24 02:53 01/12/24 02:53 Temperature 97.6 F L Temperature Source Temporal Pulse Rate Respiratory Rate 17 Blood Pressure BP Systolic BP Diastolic Pulse Ox 01/12/24 02:54 01/12/24 02:54 01/12/24 04:04 Temperature Temperature Source Pulse Rate 80 Respiratory Rate Blood Pressure 134/74 H 143/90 H BP Systolic 134 143 BP Diastolic 74 90 Pulse Ox 01/12/24 04:04 01/12/24 05:20 01/12/24 05:20 Temperature Temperature Source Temporal Pulse Rate 85 Respiratory Rate 17 Blood Pressure BP Systolic BP Diastolic Pulse Ox 01/12/24 05:20 01/12/24 05:22 01/12/24 05:22 Temperature 98.6 F Temperature Source Pulse Rate 77 Respiratory Rate Blood Pressure 133/90 H BP Systolic 133 BP Diastolic 90 Pulse Ox 01/12/24 06:18 01/12/24 06:18 01/12/24 06:18 Temperature Temperature Source Temporal Pulse Rate 75 Respiratory Rate Blood Pressure 132/71 H BP Systolic 132 BP Diastolic 71 Pulse Ox 01/12/24 06:18 01/12/24 06:18 01/12/24 07:14 Temperature 97.7 F L Temperature Source Pulse Rate Respiratory Rate 16 Blood Pressure 134/79 H BP Systolic 134 BP Diastolic 79 Pulse Ox 01/12/24 07:14 01/12/24 07:15 01/12/24 07:15 Temperature Temperature Source Temporal Pulse Rate 88 Respiratory Rate 18 Blood Pressure BP Systolic BP Diastolic Pulse Ox 01/12/24 07:15 Temperature 98.2 F Temperature Source Pulse Rate Respiratory Rate Blood Pressure BP Systolic BP Diastolic Pulse Ox Weight Weight: 253 lb 4.978 oz Body Mass Index (BMI) 42.1 Physical Exam Const alert, oriented x3, no apparent distress and healthy appearing General Appearance: cooperative; Negative for anxious HEENT normocephalic Face and Sinus: normal facial exam Eyes EOMs intact bilaterally and no scleral icterus General Eye: normal appearance of both eyes Neck full ROM and supple Lymph Lymphatic: no lymphadenopathy noted Chest Chest: abnormal inspection of the chest Resp normal respiratory effort Effort and Inspection: able to speak in complete sentences Cardio regular rate GI soft to palpation and non-tender Inspection: gravid Palpation: soft; Negative for tender external exam normal Manual OB Exam: other a 20 fr mendoza catheter was passed through the cervix and infaltted with 60cc ns Back/Spine no CVA tenderness Extremity normal to inspection, full ROM and no clubbing, cyanosis or edema General Extremity: Negative for calf tenderness or edema Skin Lesions: no lesions Rashes: no rashes Psych mental status grossly normal Labs Labs Labs: Blood Type O POSITIVE Antibody Screen NEGATIVE Hct 36.3 % (37-47) L Hgb 11.9 g/dL (12.0-15.0) L Pap Smear Negative Obstetrics Ultrasound Syphilis Total Ab Non-reactive Rubella IgG Antibody Reactive (Nonreactive) Hep Bs Antigen Non-Reactive (Nonreactive) Hepatitis C Antibody Non-Reactive (Nonreactive) Chlamydia DNA (GINGER) Negative (Negative) N.gonorrhoeae DNA (GINGER) Negative (Negative) HIV 1&2 Antibody Non-Reactive (Nonreactive) Glucose 1 Hr 50 gm 86 mg/dL (70-140) Miscellaneous Test Assessment & Plan (1) Obesity affecting : QUALIFIERS: Trimester: second trimester Obesity type affecting : unspecified obesity Qualified Code(s): O99.212 - Obesity complicating , second trimester COMMENT: HgbA1c ordered with NOB labs nl (2) Supervision of high-risk : QUALIFIERS: Trimester: third trimester Qualified Code(s): O09.93 - Supervision of high risk , unspecified, third trimester COMMENT: PRR , ALEKSANDR 01/25/24 boy Abdullahi Wallace (3) : QUALIFIERS: Weeks of gestation: 37 weeks Qualified Code(s): Z3A.37 - 37 weeks gestation of COMMENT: gbs neg, declines genetic & carrier testing, normal anatomy scan. (4) HTN (hypertension): QUALIFIERS: Hypertension type: secondary to endocrine disorders Qualified Code(s): I15.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 weekly nsts and weekly bpps starting at 32 weekly, growth US q 4 weeks, delivery 38 weeks. (5) Genital herpes: QUALIFIERS: Herpes simplex infection site: vulvovaginitis Qualified Code(s): A60.04 - Herpesviral vulvovaginitis COMMENT: valtrex at 34-35 wk PLAN: no active lesions on exam today. (6) Family history of gastroschisis: COMMENT: niece. Patient has custody of this child born August 2020 PLAN: Plan Patient presents IOL, plan management for with mendoza +pitocin then AROM. Pain management: plans epidural. GBS negative. Management of any complications: see above I have reviewed the PFSH and made any clinically relevant updates.
[2024-01-12] MEDS: Lactated Ringers 1,000 ML 999 ML IV (08:35)
[2024-01-12] MEDS: fentaNYL-bupivacaine (epidural) 100 ML BAG EPIDURAL ×3 (09:29→18:28)
[2024-01-12] MEDS: Lactated Ringers 1,000 ML 200 ML IV ×3 (10:38→20:41)
[2024-01-12] MEDS: Ondansetron 4 MG/2 ML Vial IV (15:46)
[2024-01-12] MEDS: Oxytocin 15 Units/NS 250ml 15 UNITS/250 ML IV.SOLN 334 UNITS IV (21:52)
--- NOTE | 2024-01-12 21:54 | PN.OBGYN_ITS ---
Subjective Subjective comfortable with epidural, pushing Objective Data Objective Data Vital Signs: Vital Signs Temp Pulse Resp BP Pulse Ox 98.3 F 81 16 134/68 H 99 01/12/24 21:24 01/12/24 21:25 01/12/24 21:24 01/12/24 21:25 01/12/24 21:24 Weight: 253 lb 4.978 oz Body Mass Index (BMI) 42.1 Intake & Output: Intake and Output for Last 24 Hours 01/10/24 01/11/24 01/12/24 23:59 23:59 23:59 Intake Total 558.33 / 558.33 4249.47 / 4249.47 Output Total 800 / 800 Balance 558.33 / 558.33 3449.47 / 3449.47 Lab / Micro Data 01/11/24 19:50 01/11/24 19:50 Assessment & Plan (1) repetitive variables, delivered, current hospitalization: PLAN: vacuum delivery planned PLAN: Plan cat 2 tracing current tracing: cat 2 tracing during second stage, effective pushing efforts. now with recurrent deep variables. [address] Paul, on way in to evaluate. FHT: Moderate variability variable decelerations category 2 tracing [place]: q2-3 minutes Contractions reviewed tracing abnormalities since last note: variables with recovery A/P: plan vacuum extraction delivery with physician.
--- NOTE | 2024-01-12 22:07 | EX.PCM.OBRPT ---
Assessment & Plan (1) repetitive variables, delivered, current hospitalization: (2) Supervision of high-risk : QUALIFIERS: Trimester: third trimester Qualified Code(s): O09.93 - Supervision of high risk , unspecified, third trimester COMMENT: PRR , ALEKSANDR 01/25/24 elyssa Fernando Wallace (3) : QUALIFIERS: Weeks of gestation: 37 weeks Qualified Code(s): Z3A.37 - 37 weeks gestation of COMMENT: gbs neg, declines genetic & carrier testing, normal anatomy scan. (4) HTN (hypertension): QUALIFIERS: Hypertension type: secondary to endocrine disorders Qualified Code(s): I15.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 weekly nsts and weekly bpps starting at 32 weekly, growth US q 4 weeks, delivery 38 weeks. (5) Genital herpes: QUALIFIERS: Herpes simplex infection site: vulvovaginitis Qualified Code(s): A60.04 - Herpesviral vulvovaginitis COMMENT: valtrex at 34-35 wk (6) Family history of gastroschisis: COMMENT: niece. Patient has custody of this child born August 2020 Maternal Data Information ALEKSANDR Calculator Estimated Delivery Date Method Current WG Current Estimate 01/25/24 LMP (Certain) 38w 1d Vaginal Delivery Maternal Presentation Maternal Presentation: Medically Indicated Induction Type of Induction: Pitocin, Knight Bulb, Amniotomy and Cytotec Operative Information Date of Procedure: 01/12/24 Pre-Operative Diagnosis: 28 y/o @38 weeks 1 day, chronic hypertension, deep variable decelerations and pushing for over 2 hours Post-Operative Diagnosis: 28 y/o @38 weeks 1 day, chronic hypertension, deep variable decelerations and pushing for over 2 hours Surgery / Procedure Performed: Vacuum Assisted Vaginal Delivery Type of Anesthesia: Epidural Drain: Knight to straight drain Estimated Blood Loss: 150cc Time of Delivery: 21:47 Findings Description of Procedure: Details of delivery: This is a 24 year old who was admitted to labor and delivery for chronic hypertension and induction of labor. The decision was made to perform a vacuum extraction due to persistent variable decelerations with pushing x 2 hours. The risk benefits and alternatives of the procedure were discussed with the patient and verbal consent was obtained. The was noted to be at a +3 station, the cervix was completely dilated. The infant's head was noted to be in the OP postion. The head was rotated to the right occiput anterior presentation. The vacuum was placed in the correct placement in front of the posterior fontanelle. This was confirmed digitally. With the patient's next contraction, the vacuum was inflated and a gentle downward pressure was used to assist with bringing the baby's head to a +3 station. With 2 pull and 0 pop offs. The head was delivered atraumatically. No nuchal cord was noted. The anterior shoulder followed by the posterior shoulder were delivered without difficulty. The was handed off to the patient's chest. The was found to be vigorous and crying and moving of all 4 extremities. The mouth and nares were bulb suctioned. After 60 second delay the cord was clamped and cut and the infant was handed off to the awaiting nurses for routine assessment. The placenta was delivered with gentle traction and uterine massage. Inspection of the vagina cervix and perineum was performed. There were no lacerations to the vagina or to the cervix. The peritoneum was found to have a 1st degree perineal laceration. The perineal laceration was closed using a 2-0 Vicryl in the usual sterile fashion. The patient tolerated the procedure well sponge lap and needle counts were correct x2 and she is now recovering in stable condition. baby boy danilo Presentation: Vertex Amniotic Membrane Rupture Type: Artificial Amniotic Fluid Description: Clear Placental Delivery Description: Spontaneous Placenta Disposition: [facility] Cord Vessel Description: 3 Vessels Cord Entanglement: None Cord Gases: ABG and VBG A Gender: Male (1 minute): 8 (5 minute): 9 Delayed Cord Clamping: Yes Post Vaginal Delivery Medications Given After Delivery: IV Pitocin Episiotomy Description: None Laceration: 2nd degree Complication Complications: None Multi Select Codes Urinary/Genital Urinary/Genital CPT Codes: 36349 Vaginal Delivery global pk
[2024-01-12] MEDS: Oxytocin 15 Units/NS 250ml 15 UNITS/250 ML IV.SOLN 83 UNITS IV (22:37)
[2024-01-13] VITALS (11 sets, daily range): BP systolic 117–140; BP diastolic 57–75; PULSE 78–93; RESP 14–16; TEMP 36.2–36.9; O2SAT 96–98
[2024-01-13] MEDS: Acetaminophen 500 MG Tablet 1000 MG PO ×2 (08:04→19:58)
[2024-01-13] MEDS: Benzocaine/Lanolin/Aloe Vera 85 GM Spray 1 SPRAY TOPICAL (08:05)
--- NOTE | 2024-01-13 08:55 | PN.OBGYN_ITS ---
Subjective Subjective Patient doing well without complaints. Tolerating PO. Ambulating and voiding without difficulty. Feeding well. Denies chest pain, shortness of breath, calf pain/swelling, fevers, chills, lightheadedness. Objective Data Objective Data Vital Signs: Vital Signs Temp Pulse Resp BP Pulse Ox O2 Del Method 98.5 F 93 16 118/65 97 Room Air 01/13/24 07:54 01/13/24 07:55 01/13/24 07:54 01/13/24 07:55 01/13/24 07:55 01/13/24 07:54 Oxygen Delivery Method Room Air Weight: 253 lb 4.978 oz Body Mass Index (BMI) 42.1 Intake & Output: Intake and Output for Last 24 Hours 01/11/24 01/12/24 01/13/24 23:59 23:59 23:59 Intake Total 558.33 / 558.33 4719.47 / 4719.47 250 / 250 Output Total 950 / 1550 600 / 600 Balance 558.33 / 558.33 3769.47 / 3169.47 -350 / -350 Lab / Micro Data 01/11/24 19:50 01/11/24 19:50 Physical Exam Const alert and oriented x3 Eyes PERRL Neck full ROM Lymph Lymphatic: no lymphadenopathy noted Chest inspection of chest normal Resp normal respiratory effort and normal air movement Cardio regular rate and regular rhythm GI normal to inspection, nondistended, normoactive bowel sounds Uterus Palpation: uterus fundus firm Extremity normal to inspection, full ROM and no pedal edema Skin no rashes or lesions noted Psych mental status grossly normal Assessment & Plan (1) Vacuum extractor delivery, delivered: COMMENT: ISSAC Fernando (2) HTN (hypertension): QUALIFIERS: Hypertension type: secondary to endocrine disorders Q ualified Code(s): I15.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 weekly nsts and weekly bpps starting at 32 weekly, growth US q 4 weeks, delivery 38 weeks. (3) Genital herpes: QUALIFIERS: Herpes simplex infection site: vulvovaginitis Q ualified Code(s): A60.04 - Herpesviral vulvovaginitis COMMENT: valtrex at 34-35 wk (4) : QUALIFIERS: Weeks of gestation: 37 weeks Qualified Code(s): Z 3A.37 - 37 weeks gestation of COMMENT: gbs neg, declines genetic & carrier testing, normal anatomy scan. (5) Supervision of high-risk : QUALIFIERS: Trimester: third trimester Qualified Code(s): O09.93 - Supervision of high risk , unspecified, third trimester COMMENT: PRR , ALEKSANDR 01/25/24 boy Abdullahi Wallace (6) Obesity affecting : QUALIFIERS: Trimester: second trimester Obesity type affecting : unspecified obesity Qualified Code(s): O99.212 - Obesity complicating , second trimester COMMENT: HgbA1c ordered with NOB labs nl PLAN: Plan s/p PPD # 1 1. routine post delivery care 2. breast feeding- support given 3. rh positive 4. rubella immune 5. plan d/c home tomorrow.
[2024-01-13] MEDS: FLU VACC 2024-25(6MOS UP)/PF 45 MCG/0.5 ML SYRINGE IM (09:46)
[2024-01-13] MEDS: Senna/Docusate Sodium 1 Tablet PO (09:46)
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
[2024-01-14 03:09] VITALS: BP 117/62; PULSE 82
[2024-01-14 03:15] VITALS: BP 117/62; PULSE 83; RESP 16; TEMP 37; O2SAT 97
[2024-01-14 07:53] VITALS: BP 117/70; BP 140/77; PULSE 82; PULSE 85; RESP 16; TEMP 36.3; O2SAT 100
[2024-01-14 07:54] VITALS: PULSE 84; O2SAT 100
[2024-01-14 07:55] VITALS: BP 119/70; PULSE 92
--- NOTE | 2024-01-14 09:11 | PCM.PN.CNM ---
Subjective Subjective Patient doing well without complaints. Tolerating PO. Ambulating and voiding without difficulty. Feeding well. Denies chest pain, shortness of breath, calf pain/swelling, fevers, chills, lightheadedness. Objective Data Objective Data Vital Signs: Vital Signs Temp Pulse Resp BP Pulse Ox O2 Del Method 97.3 F L 92 16 119/70 100 Room Air 01/14/24 07:53 01/14/24 07:55 01/14/24 07:53 01/14/24 07:55 01/14/24 07:54 01/14/24 07:53 Oxygen Delivery Method Room Air Weight: 253 lb 4.978 oz Body Mass Index (BMI) 42.1 Intake & Output: Intake and Output for Last 24 Hours 01/12/24 01/13/24 01/14/24 23:59 23:59 23:59 Intake Total 4719.47 / 4719.47 250 / 250 Output Total 950 / 1550 800 / 800 Balance 3769.47 / 3169.47 -550 / -550 Lab / Micro Data 01/11/24 19:50 01/11/24 19:50 Physical Exam Const alert and oriented x3 Eyes PERRL Neck full ROM Lymph Lymphatic: no lymphadenopathy noted Chest inspection of chest normal Resp normal respiratory effort and normal air movement Cardio regular rate and regular rhythm GI normal to inspection, nondistended, normoactive bowel sounds Uterus Palpation: uterus fundus firm Extremity normal to inspection, full ROM and no pedal edema Skin no rashes or lesions noted Psych mental status grossly normal Assessment & Plan (1) Vacuum extractor delivery, delivered: COMMENT: ISSAC Fernando PLAN: s/p PPD # 2 1. routine post delivery care 2. breast feeding- support given 3. rh positive 4. rubella immune 5. d/c home today.
--- NOTE | 2024-01-14 09:12 | PCM.DC.SUM ---
Providers Date of Admission: 01/11/24 Primary Care Physician: Dr. Gurwinder Pichardo MD Reason For Visit: VAG Diagnosis Discharge Diagnosis (1) Vacuum extractor delivery, delivered: Status: Acute Code(s): O75.9 - Complication of labor and delivery, unspecified Plan: s/p PPD # 2 1. routine post delivery care 2. breast feeding- support given 3. rh positive 4. rubella immune 5. d/c home today. Medications at Discharge Home Medications multivitamin no.47-iron fum 27 mg-folate no.1 1 mg-dha 300 mg capsule (PNV-DHA) 1 cap PO DAILY 06/13/23 valacyclovir 500 mg tablet (Valtrex) 500 mg PO QDAY HSV #30 tabs 12/22/23 Hospital Course Operations None Procedures None Summary of Care Provided Hospital Course: at 38 weeks for IOL for ghtn resulting in vacuum delivery. uncomplicated pp course. BP stable pp. no s/sx of PEC Physical Exam Const alert and oriented x3 Eyes PERRL Neck full ROM Lymph Lymphatic: no lymphadenopathy noted Chest inspection of chest normal Resp normal respiratory effort and normal air movement Cardio regular rate and regular rhythm GI normal to inspection, nondistended, normoactive bowel sounds Uterus Palpation: uterus fundus firm Extremity normal to inspection, full ROM and no pedal edema Skin no rashes or lesions noted Psych mental status grossly normal Weight / BMI Weight Weight: 253 lb 4.978 oz Body Mass Index (BMI) 42.1 ABG / Lab / Microbiology Data 01/11/24 19:50 01/11/24 19:50 D/C Instructions Discharge Diet: No restrictions Discharge Activity: May Not Drive and May Shower May resume sexual activity in: 6 weeks Weight Bearing Status: Full weight bearing Call your doctor if your incision/area has: Sudden Increased Bleeding, Increased Pain/ Swelling and Foul Smelling Discharge Call your doctor if you observe: Fever of 101 or Higher, Numbness or Tingling, Change in Color, Inability to urinate, Inability to have a bowel movement, Using more than 1 pad per hour, Shortness of breath, Dizziness, Fainting spells, Chest pain, Calf discomfort and Uncontrolled pain Please Follow Up With: Michelle Bonner DO When: 6 weeks , please call office to make an appointment. Congratulations on the of your baby! Meaningful Use Info Meaningful Use Meaningful Use Diagnoses (Choose all that apply): None applicable Ischemic Stroke Statin Dosing Therapy Reference: STATIN DOSE THERAPY REFERENCE: * Patients > 75 years receive moderate or high dose statin therapy. * Patients 75 years or YOUNGER should receive HIGH intensity statin dose unless contraindicated. You will be required to document reason for non-treatment if statin daily dose does not meet guidelines. HIGH DOSE STATIN THERAPY DAILY Atorvastatin > than or = to 40 mg Rosuvastatin > than or = to 20 mg Amlodipine + Atorvastatin > than or = to 2.5/40 mg Ezetimibe + Simvastatin 10/80 mg Simvastatin 80mg Discharge Plan Admission Admit Date/Time: 01/11/24 19:26 Attending Provider: Michelle Bonner Primary Care Provider: Gurwinder Pichardo Discharge Orders/Prescriptions Prescriptions: No Action PNV-DHA 27 mg iron-1 mg -300 mg capsule 1 cap PO DAILY valacyclovir [Valtrex] 500 mg tablet 500 mg PO QDAY Qty: 30 12RF Referrals / Follow Up: Gurwinder Pichardo MD [Primary Care Provider] - Disposition Disposition (needs filled in before D/C Order can be placed): Home, Self Care
[2024-01-14] MEDS: Senna/Docusate Sodium 1 Tablet PO (09:14)
== END 2024-01-14 10:05 | disposition home or self-care (01) | DRG 807 ==
PROVIDERS: Admitting Provider Obstetrics & Gynecology; PCP Family Medicine; Referring Provider Obstetrics & Gynecology; Visit Provider Obstetrics & Gynecology
DX: O10.42 Pre-existing secondary hypertension complicating childbirth (principal); Z37.0 Single live birth; I15.2 Hypertension secondary to endocrine disorders; O99.214 Obesity complicating childbirth; O70.0 First degree perineal laceration during delivery; O76 Abnormality in fetal heart rate and rhythm complicating labor and delivery; Z3A.38 38 weeks gestation of pregnancy; Z87.42 Personal history of other diseases of the female genital tract; Z23 Encounter for immunization
CPT/HCPCS: 59050; 80053; 85025; 86780; 86850; 86900; 86901; 90656; 99221; J7120; G0378; J2405